=== PATIENT | male | born 1950 | race Caucasian/White ===

== ENCOUNTER → 2017-02-24 | Outpatient (CLI) | payer BC ==
--- NOTE | 2017-02-24 07:35 | US ---
EXAMINATION TYPE: US duplex aorta DATE OF EXAM: 02/24/2017 7:08 AM COMPARISON: NONE CLINICAL HISTORY: Z78.9 Other specified health status. EXAM MEASUREMENTS: Abdominal Aorta: Proximal: 1.9 Mid: 1.9 Distal: 1.4 Bifurcation: Left 0.9 Right 0.9 Some portions of aorta obscured by bowel gas, no aortic aneurysm identified. IMPRESSION: No evidence for abdominal aortic aneurysm at this time.
== END | disposition home or self-care (01) ==
LOC: RADUSWWP 06:43
PROVIDERS: ATTEND Family Medicine
DX: Z13.6 Encounter for screening for cardiovascular disorders (principal); Z78.9 Other specified health status; Z87.891 Personal history of nicotine dependence
CPT/HCPCS: 93979

== ENCOUNTER → 2018-12-07 | Outpatient (CLI) | payer BC ==
--- NOTE | 2018-12-07 11:52 | ECHOS ---
STRESS ECHOCARDIOGRAM INDICATIONS: Chest pain. MEDICATIONS: Tamsulosin, Lipitor, Flexeril, lisinopril. BASELINE HEART RATE: 64 BASELINE BLOOD PRESSURE: 102/65 MAXIMUM HEART RATE: 135 MAXIMUM BLOOD PRESSURE: 151/76 85% MPHR: 130 100% MPHR: 153 METS: 7.1 MAXIMUM STAGE REACHED: 2 TOTAL EXERCISE TIME: 5:30 CLINICAL INFORMATION: STRESS DATA: Pretesting physical examination showed a heart rate of 64, pressure 102/65 mmHg. Baseline EKG showed sinus mechanism with ST changes in the inferolateral leads. A repeat baseline EKG showed sinus mechanism. The patient exercised on the Arsen protocol for 5 minutes and 30 seconds and achieved 7.1 METS. Max heart rate was 135, which is about 88% of maximum predicted heart rate. Maximum blood pressure was 151/76 mmHg. Clinically, the patient did not have any symptoms of chest pain or chest discomfort during the testing or on recovery. The EKG showed about 1 mm horizontal and downsloping changes on recovery. ECHOCARDIOGRAM IMAGES: On echocardiogram images from parasternal long axis view, parasternal short axis view, apical 4 chamber and apical 2 chamber views were obtained as the baseline images, at the peak of the heart rate as well as on recovery. The echocardiogram images showed good augmentation in the left ventricular systolic function without any evidence of wall motion abnormalities concerning for ischemia. CONCLUSION: 1. Good exercise tolerance. 2. Mild EKG changes in response to exercise. 3. Normal echocardiographic in response to exercise without any evidence of inducible ischemia. MMODL / IJN: [id number] /
== END | disposition home or self-care (01) ==
LOC: RADNMMAIN 09:24
PROVIDERS: ATTEND Family Medicine
DX: R94.31 Abnormal electrocardiogram [ECG] [EKG] (principal); R07.89 Other chest pain
CPT/HCPCS: 93351

== ENCOUNTER 2019-02-15 08:04 | Emergency (ER) | payer BC ==
[2019-02-15 08:13] VITALS: RESP 18
--- NOTE | 2019-02-15 08:52 | CT ---
EXAMINATION TYPE: CT brain wo con DATE OF EXAM: 02/15/2019 COMPARISON: None HISTORY: Possible seizure CT DLP: 1099.[address] of the brain was performed. The ventricles, basal cisterns and sulci overlying the cerebral convexities demonstrate mild enlargem ent. There is no evidence for intracranial hemorrhage or sulcal effacement. There is decreased attenuation about the periventricular white matter and deep white matter of both c erebral hemispheres, compatible with chronic small vessel ischemia. Differential diagnosis does inclu de demyelination. No mass effects are seen.No midline shift. Osseous calvarium is intact. If symptoms persist consider MRI. IMPRESSION: 1. Age related atrophic and chronic small vessel ischemic change without acute intracranial process s een at this time.
[2019-02-15] MEDS ORDERED: SODIUM CHLORIDE 0.9% 1,000 ML IV STA (09:00)
[2019-02-15] MEDS ORDERED: ACETAMINOPHEN TAB 325 MG TAB PO STA (09:00)
[2019-02-15] MEDS ORDERED: METOCLOPRAMIDE 5 MG/ML 2 ML VIAL IVP STA (09:00)
[2019-02-15] MEDS ORDERED: diphenhydrAMINE 50 MG/ML 1 ML VIAL IVP STA (09:00)
--- NOTE | 2019-02-15 09:25 | ED ---
Headache HPI - General Chief Complaint: Headache Stated Complaint: poss seizure Time Seen by Provider: 02/15/19 08:46 Source: patient, family, RN notes reviewed Mode of arrival: ambulatory Limitations: no limitations - History of Present Illness Initial Comments: This a 68-year-old male presents emergency Department chief complaint of headache, blurred vision. Patient states that he woke up this morning states that he was looking at his clock and which she states the numbers were slightly blurry or pixels. Patient states that this lasted a few minutes and resolved. Denies any associated focal weakness, nausea, vomiting, chest pain, shortness br eath, confusion. states that he had no change in behavior. denies any slurred speech. Patient states that he has a slight headache more in the right occipital region. He is not the worse headache of his life. Patient states that this is a very mild headache did not take any Tylenol Motrin. Patient had no fevers chills no neck pain. - Related Data Home Medications Medication Instructions Recorded Confirmed Ascorbic Acid [Vitamin C] 500 mg PO DAILY 02/15/19 02/15/19 Atorvastatin [Lipitor] 20 mg PO HS 02/15/19 02/15/19 Cholecalciferol [Vitamin D3 (25 1,000 unit PO DAILY 02/15/19 02/15/19 Mcg = 1000 Iu)] Ferrous Sulfate [Feosol] 325 mg PO DAILY 02/15/19 02/15/19 Lisinopril [Prinivil] 10 mg PO HS 02/15/19 02/15/19 Primidone [Mysoline] 50 mg PO HS 02/15/19 02/15/19 Tamsulosin [Flomax] 0.4 mg PO DAILY 02/15/19 02/15/19 Terazosin [Hytrin] 2 mg PO HS 02/15/19 02/15/19 Allergies Allergy/AdvReac Type Severity Reaction Status Date / Time No Known Allergies Allergy Verified 02/15/19 09:04 Review of Systems ROS Statement: Those systems with pertinent positive or pertinent negative responses have been documented in the HPI. ROS Other: All systems not noted in ROS Statement are negative. Past Medical History Past Medical History: Hyperlipidemia, Hypertension Additional Past Medical History / Comment(s): enlarged prostate History of Any Multi-Drug Resistant Organisms: None Reported Past Surgical History: No Surgical Hx Reported Past Psychological History: No Psychological Hx Reported Smoking Status: Never smoker Past Alcohol Use History: None Reported Past Drug Use History: None Reported General Exam Limitations: no limitations General appearance: alert, in no apparent distress Head exam: Present: atraumatic, normocephalic, normal inspection Eye exam: Present: normal appearance, PERRL, EOMI. Absent: scleral icterus, conjunctival injection, periorbital swelling ENT exam: Present: normal exam, normal oropharynx, mucous membranes moist, TM's normal bilaterally Neck exam: Present: normal inspection, full ROM. Absent: tenderness, meningismus, lymphadenopathy Respiratory exam: Present: normal lung sounds bilaterally. Absent: respiratory distress, wheezes, rales, rhonchi, stridor Cardiovascular Exam: Present: regular rate, normal rhythm, normal heart sounds. Absent: systolic murmur, diastolic murmur, rubs, gallop, clicks GI/Abdominal exam: Present: soft, normal bowel sounds. Absent: distended, tenderness, guarding, rebound, rigid Extremities exam: Present: normal inspection, full ROM, normal capillary refill. Absent: tenderness, pedal edema, joint swelling, calf tenderness Neurological exam: Present: alert, oriented X3, CN II-XII intact, reflexes normal. Absent: motor sensory deficit Skin exam: Present: warm, dry, intact, normal color. Absent: rash Course Vital Signs 02/15/19 02/15/19 08:08 09:20 Temperature 97.8 F Pulse Rate 62 61 Respiratory 18 18 Rate Blood Pressure 116/69 121/81 O2 Sat by Pulse 99 98 Oximetry - Reevaluation(s) Reevaluation #1: 02/15/19 10:50 Patient reevaluated and updated on results patient is symptom-free headache is resolved. Medical Decision Making - Medical Decision Making 68-year-old male presented for headache and a few minutes blurred vision. All symptoms have resolved and he has a normal CT, CTA of the brain, normal lab work and normal EKG. Patient may have had an ocular migraine or just underlying occipital headache. We discussed possibility of TIA this is felt to be less likely. Patient will follow-up neurology he'll continue taking daily aspirin and return for any worsening or new symptoms. - Lab Data Result diagrams: 02/15/19 09:27 02/15/19 09:27 Lab Results 02/15/19 02/15/19 02/15/19 Range/Units 09:27 09:27 09:27 WBC 4.4 (3.8-10.6) k/uL RBC 4.79 (4.30-5.90) m/uL Hgb 14.0 (13.0-17.5) gm/dL Hct 42.5 (39.0-53.0) % MCV 88.7 (80.0-100.0) fL MCH 29.3 (25.0-35.0) pg MCHC 33.0 (31.0-37.0) g/dL RDW 13.8 (11.5-15.5) % Plt Count 192 (150-450) k/uL Sodium 140 (137-145) mmol/L Potassium 4.3 (3.5-5.1) mmol/L Chloride 107 (98-107) mmol/L Carbon Dioxide 28 (22-30) mmol/L Anion Gap 5 mmol/L BUN 17 (9-20) mg/dL Creatinine 0.84 (0.66-1.25) mg/dL Est GFR (CKD-EPI)AfAm >90 (>60 ml/min/1.73 sqM) Est GFR (CKD-EPI)NonAf >90 (>60 ml/min/1.73 sqM) Glucose 90 (74-99) mg/dL Calcium 9.2 (8.4-10.2) mg/dL Total Bilirubin 0.8 (0.2-1.3) mg/dL AST 34 (17-59) U/L ALT 40 (21-72) U/L Alkaline Phosphatase 63 (38-126) U/L Troponin I <0.012 (0.000-0.034) ng/mL Total Protein 6.5 (6.3-8.2) g/dL Albumin 3.9 (3.5-5.0) g/dL - EKG Data EKG Comments: EKG 0.9:12 sinus bradycardia with rate of 58 NM 164 QRS 88 QT status QTC 450/441 Disposition Clinical Impression: Headache Disposition: HOME SELF-CARE Condition: Stable Instructions (If sedation given, give patient instructions): Acute Headache (ED) Additional Instructions: Please return to the Emergency Department if symptoms worsen or any other concerns. Is patient prescribed a controlled substance at d/c from ED?: No Referrals: Chuck Encarnacion MD [Primary Care Provider] - 1-2 days Tony Davis MD [Medical Doctor] - 1-2 days Joshua House DO [STAFF PHYSICIAN] - 1-2 days Time of Disposition: 10:52
[2019-02-15 09:49] LABS: ALT 40 U/L (21-72); AST 34 U/L (17-59); Albumin 3.9 g/dL (3.5-5.0); Alkaline Phosphatase 63 U/L (38-126); Anion Gap 5 mmol/L; Blood Urea Nitrogen 17 mg/dL (9-20); Calcium 9.2 mg/dL (8.4-10.2); Carbon Dioxide 28 mmol/L (22-30); Chloride 107 mmol/L (98-107); Glucose 90 mg/dL (74-99); Potassium 4.3 mmol/L (3.5-5.1); Sodium 140 mmol/L (137-145); Total Bilirubin 0.8 mg/dL (0.2-1.3); Total Protein 6.5 g/dL (6.3-8.2)
[2019-02-15 10:08] LABS: Mean Platelet Volume 6.8; Platelet Count 192 k/uL (150-450)
[2019-02-15 10:11] LABS: HCT 42.5 % (39.0-53.0); MCH 29.3 pg (25.0-35.0); MCV 88.7 fL (80.0-100.0); RBC 4.79 m/uL (4.30-5.90); RDW 13.8 % (11.5-15.5); WBC 4.4 k/uL (3.8-10.6)
--- NOTE | 2019-02-15 10:36 | CT ---
EXAMINATION TYPE: CT angio head DATE OF EXAM: 02/15/2019 10:20 AM COMPARISON: CT brain study earlier today HISTORY: DOUGLAS, blurred vision CT DLP: 710.1 mGycm Automated exposure control for dose reduction was used. TECHNIQUE: Performed with IV Contrast, patient injected with 100 mL of Isovue 300. Aneurysm protocol with 2-D an d 3-D reconstructed images created on an independent workstation and reviewed. . FINDINGS: There is codominant vertebrobasilar system. Vertebral arteries are patent to basilar junction. There is no significant focal stenosis or aneurysmal change in the posterior circulation. There are hypopl astic bilateral posterior communicating arteries. Images of the anterior circulation show poor visualized anterior communicating artery. There is no si gnificant focal stenosis or aneurysmal change otherwise identified. There is small branching vessel f rom the anterior cerebral arteries noted causing slight beaded appearance. IMPRESSION: NO ANEURYSMAL CHANGE AT THE LEVEL OF THE [place].
[2019-02-15 11:00] LABS: Eosinophils # (M) 0.26 k/uL (0-0.7); Lymphocytes # (M) 1.28 k/uL (1.0-4.8); Monocytes # (M) 0.31 k/uL (0-1.0); Neutrophils # (M) 2.55 k/uL (1.3-7.7); Neutrophils % (M) 58 %; Nucleated Red Blood Cells 0 /100 WBC (0-0); Total Cells Counted 100
[2019-02-15 11:04] VITALS: BP 105/73; PULSE 64; TEMP 98.9
== END 2019-02-15 11:02 | disposition home or self-care (01) ==
LOC: EC 08:04
DX: R51 Headache (principal); H53.8 Other visual disturbances; E78.5 Hyperlipidemia, unspecified; N40.0 Benign prostatic hyperplasia without lower urinary tract symptoms; I10 Essential (primary) hypertension; Z79.899 Other long term (current) drug therapy
CPT/HCPCS: 36415; 93005; 80053; 84484; 85025; 70496; 70450; 99284; 96374; 96375; 96361; J1200; J2765; Q9967

== ENCOUNTER → 2019-02-20 | Outpatient (CLI) | payer BC ==
--- NOTE | 2019-02-20 14:38 | US ---
EXAMINATION TYPE: US pelvic limited DATE OF EXAM: 02/20/2019 COMPARISON: NONE CLINICAL HISTORY: 68-year-old male K40.90 Unilateral inguinal hernia, without obstruction or gangrene . TECHNIQUE: Multiple sonographic images of the right lower quadrant/region on the safe side of patien t's pain/palpable finding FINDINGS: No right inguinal or otherwise other right lower quadrant abdominal wall hernia is identified with Va lsalva maneuvers. Targeted scanning to the patient's palpable site shows a prominent high right inguinal lymph node is noted measuring 2.6 x 2.0 x 0.9 cm. Just adjacent to this region, the rectus femoris origin is identified and there is bony irregularity and some fragmentation here but the originating tendon fibers appear to be largely intact. IMPRESSION: 1. No right inguinal hernia identified. 2. Targeted scanning to the patient's palpable site shows a prominent 2.0 cm short axis lymph node, p robably reactive/post inflammatory. Initially followed clinically. If any enlargement is noted, the a cuca can be imaged. 3. Just adjacent, there is some bony irregularity and hypoechogenicity at the rectus femoris origin s uggesting tendinosis and prior partial tears. The majority of the tendon remains intact.
== END | disposition home or self-care (01) ==
LOC: RADUSWWP 12:41
PROVIDERS: ATTEND Family Medicine
DX: K40.90 Unilateral inguinal hernia, without obstruction or gangrene, not specified as recurrent (principal)
CPT/HCPCS: 76857

== ENCOUNTER → 2019-05-14 | Outpatient (CLI) | payer BC ==
--- NOTE | 2019-05-14 14:56 | US ---
EXAMINATION TYPE: US pelvic limited DATE OF EXAM: 05/14/2019 COMPARISON: 02/20/2019 CLINICAL HISTORY: R59.1 Reactive lymphadenopathy. Lymphadenopathy. TECHNIQUE: Transabdominal (TA) targeted pelvic ultrasound. FINDINGS: Postvoid volume of the urinary bladder is abnormal measured at 92.40 ml. The prostate gland also appears diffusely heterogenous and enlarged measuring 6 cm in transverse dimension impressing u jeanne the posterior inferior urinary bladder. Bilateral jets seen. In the right lower quadrant peristalsing bowel, presumably cecum is seen. No tom nopathy is identified. IMPRESSION: The previously seen adenopathy is not identified on the submitted images. Incidental note is made of abnormal post void residual and enlarged heterogenous prostate gland.
== END | disposition home or self-care (01) ==
LOC: RADUSWWP 13:07
PROVIDERS: ATTEND Family Medicine
DX: N40.0 Benign prostatic hyperplasia without lower urinary tract symptoms (principal)
CPT/HCPCS: 76857

== ENCOUNTER → 2019-06-26 | Outpatient (CLI) | payer BC ==
--- NOTE | 2019-06-26 08:33 | US ---
EXAMINATION TYPE: US prostate transrectal DATE OF EXAM: 06/26/2019 COMPARISON: NONE CLINICAL HISTORY: N13.8 Obstructive and Reflux Uropathy. This examination was performed using the transrectal probe. EXAM MEASUREMENTS: Gland Size: 5.2 x 3.3 x 5.1cm Volume: 44.9 Predicted PSA: 5.4 Actual PSA (if available):0.7 (done April 2018) Prostate gland is heterogenous with central zone calcifications. No focal suspicious masses seen on u ltrasound. IMPRESSION: Heterogenous and enlarged prostate gland. No identifiable suspicious nodule. Predicted PSA = volume x 0.12 ng/ml Calculated Volume = 0.5236 x L x W x H
== END | disposition home or self-care (01) ==
LOC: RADUSWWP 06:51
PROVIDERS: ATTEND Family Medicine
DX: N40.0 Benign prostatic hyperplasia without lower urinary tract symptoms (principal); N13.8 Other obstructive and reflux uropathy
CPT/HCPCS: 76872

== ENCOUNTER → 2021-01-19 | Outpatient (CLI) | payer BC ==
--- NOTE | 2021-01-20 03:52 | MR ---
EXAMINATION TYPE: MR brain wo con DATE OF EXAM: 01/19/2021 COMPARISON: 7:30 HISTORY: Memory loss. Multiplanar multiecho imaging of the brain was performed with no contrast. There is some cerebral cortical atrophy. There is no mass effect nor midline shift. There is no sign of intracranial hemorrhage. Brainstem is intact. Corpus callosum is intact. Sella turcica appears nor mal. Diffusion images show no evidence of an acute infarct. There is some mucosal thickening in the m axillary sinuses. There is slight increased signal in the white matter of the right occipital lobe on the T2 and FLAIR images. There is 4 mm focus of increased signal in the white matter right insula of the temporal lobe which is a change compared to old exam. There is no evidence of orbital mass. IMPRESSION: There is some cerebral atrophy. No evidence of cortical infarct. White matter signal changes in the r ight occipital lobe and in the insula right temporal lobe are increased compared to old exam.
== END | disposition home or self-care (01) ==
LOC: RADMRIMAIN 15:35
PROVIDERS: ATTEND Psychiatry & Neurology Neurology
DX: R90.82 White matter disease, unspecified (principal); G31.9 Degenerative disease of nervous system, unspecified
CPT/HCPCS: 70551

== ENCOUNTER → 2021-02-18 | Outpatient (CLI) | payer BC ==
--- NOTE | 2021-02-18 12:44 | ECHOF ---
Referral Reason:G45.9 Transient cerebral ishemic attack MEASUREMENTS -------- HEIGHT: 185.4 cm WEIGHT: 90.7 kg BP: 139/73 RVIDd: 3.5 cm (< 3.3) IVSd: 1.2 cm (0.6 - 1.1) LVIDd: 4.4 cm (3.9 - 5.3) LVPWd: 1.3 cm (0.6 - 1.1) IVSs: 1.7 cm LVIDs: 3.1 cm LVPWs: 1.8 cm LA Diam: 3.8 cm (2.7 - 3.8) LAESV Index (A-L): 24.46 ml/m Ao Diam: 3.4 cm (2.0 - 3.7) AV Cusp: 2.2 cm (1.5 - 2.6) MV EXCURSION: 19.436 mm (> 18.000) MV EF SLOPE: 96 mm/s (70 - 150) EPSS: 0.4 cm MV E Khang: 0.57 m/s MV DecT: 254 ms MV A Khang: 0.59 m/s MV E/A Ratio: 0.96 FINDINGS -------- Sinus rhythm. This was a technically good study. The left ventricular size is normal. There is mild concentric left ventricular hypertrophy. Overa ll left ventricular systolic function is normal with, an EF between 55 - 60 %. The right ventricle is mildly enlarged. Normal LA size by volume 22+/-6 ml/m2. The right atrium is normal in size. Interatrial and interventricular septum intact. The aortic valve is trileaflet, and appears structurally normal. No aortic stenosis or regurgitation. There is trace to mild mitral regurgitation. Trace tricuspid regurgitation present. Unable to estimate RVSP due to inadequate TR jet spectral do ppler profile. The pulmonic valve was not well visualized. The aortic root size is normal. IVC Not well visulized. There is no pericardial effusion. CONCLUSIONS -------- 1. The left ventricular size is normal. 2. There is mild concentric left ventricular hypertrophy. 3. Overall left ventricular systolic function is normal with, an EF between 55 - 60 %. 4. The right ventricle is mildly enlarged. 5. Normal LA size by volume 22+/-6 ml/m2. 6. The aortic valve is trileaflet, and appears structurally normal. No aortic stenosis or regurgitati on. 7. There is trace to mild mitral regurgitation. 8. Trace tricuspid regurgitation present. 9. There is no pericardial effusion. CLASSIFIER: Alicia Carrillo RDCS
== END | disposition home or self-care (01) ==
LOC: RADECHMAIN 11:50
PROVIDERS: ATTEND Family Medicine
DX: I08.1 Rheumatic disorders of both mitral and tricuspid valves (principal)
CPT/HCPCS: 93306

== ENCOUNTER → 2021-02-25 | Outpatient (CLI) | payer BC ==
--- NOTE | 2021-02-25 12:40 | US ---
EXAMINATION TYPE: US carotid duplex BILAT DATE OF EXAM: 02/25/2021 COMPARISON: CTang head neck CLINICAL HISTORY: G45.9 Transient cerebral ischemic. Symptoms 5 years ago. EXAM MEASUREMENTS: RIGHT: Peak Systolic Velocity (PSV) cm/sec ----- Right CCA: 82.9 ----- Right ICA: 80.3 ----- Right ECA: 121.3 mid ICA/CCA ratio: 1.0 RIGHT: End Diastole cm/sec ----- Right CCA: 19.7 ----- Right ICA: 15.9 ----- Right ECA: 18.9 LEFT: Peak Systolic Velocity (PSV) cm/sec ----- Left CCA: 70.0 ----- Left ICA: 109.6 ----- Left ECA: 87.6 ICA/CCA ratio: 1.6 LEFT: End Diastole cm/sec ----- Left CCA: 18.3 ----- Left ICA: 11.1 ----- Left ECA: 12.4 VERTEBRALS (direction of flow): Right Vertebral: Antegrade Left Vertebral: Antegrade Rhythm: Normal Mild to moderate intimal wall changes are noted at bilateral carotid bifurcation, but PSV is wnl bila terally. IMPRESSION: No evidence for hemodynamically significant stenosis. Criteria for Assigning % of Stenosis / Diameter reduction (Estimation based on the indirect measurements of the internal carotid artery velocities (ICA PSV). 1. Normal (no stenosis)=ICA PSV < 125 cm/s: ratio < 2.0: ICA EDV<40 cm/s. 2. Less than 50% stenosis=ICA PSV < 125 cm/s: ratio < 2.0: ICA EDV<40 cm/s. 3. 50 to 69% stenosis=ICA PSV of 125 to 230 cm/s: ration 2.0 ? 4.0: ICA EDV 40-100 cm/s. 4. Greater than 70% stenosis to near occlusion= ICA PSV > 230 cm/s: ratio > 4.0: ICA EDV > 100 cm/s. 5. Near occlusion= ICA PSV velocities may be low or undetectable: variable ratio and ICA EDV. 6. Total occlusion=unable to detect flow.
== END | disposition home or self-care (01) ==
LOC: RADUSWWP 10:46
PROVIDERS: ATTEND Family Medicine
DX: G45.9 Transient cerebral ischemic attack, unspecified (principal)
CPT/HCPCS: 93880

== ENCOUNTER → 2021-08-09 | Outpatient (CLI) | payer BC | END | disposition home or self-care (01) | LOC: LABWHC1 10:36 | PROVIDERS: ATTEND Psychiatry & Neurology Neurology | DX: R41.3 Other amnesia (principal) | CPT/HCPCS: 36415; 82607; 84443 ==

== ENCOUNTER → 2022-05-06 | Outpatient (CLI) | payer BC ==
[2022-05-06 14:51] LABS: Basophils % (A) 1 %; Eosinophils # (A) 0.4 k/uL (0-0.7); Eosinophils % (A) 7 %; HCT 43.9 % (39.0-53.0); HGB 14.1 gm/dL (13.0-17.5); Lymphocytes # (A) 1.4 k/uL (1.0-4.8); Lymphocytes % (A) 26 %; MCH 30.3 pg (25.0-35.0); MCHC 32.1 g/dL (31.0-37.0); MCV 94.5 fL (80.0-100.0); Mean Platelet Volume 7.1; Monocytes # (A) 0.3 k/uL (0-1.0); Monocytes % (A) 6 %; Neutrophils # (A) 3.2 k/uL (1.3-7.7); Neutrophils % (A) 59 %; Platelet Count 180 k/uL (150-450); RBC 4.65 m/uL (4.30-5.90); RDW 13.2 % (11.5-15.5); WBC 5.4 k/uL (3.8-10.6)
[2022-05-06 15:00] LABS: ALT 28 U/L (4-49); AST 35 U/L (17-59); African American GFR (CKD) >90 (>60 ml/min/1.73 sqM); Albumin 3.8 g/dL (3.5-5.0); Albumin/Globulin Ratio 1.5; Alkaline Phosphatase 92 U/L (38-126); Anion Gap 4 mmol/L; Blood Urea Nitrogen 17 mg/dL (9-20); Calcium 8.9 mg/dL (8.4-10.2); Carbon Dioxide 33 mmol/L (22-30); Chloride 103 mmol/L (98-107); Globulin 2.5 g/dL; Glucose 83 mg/dL (74-99); Non-African American GFR(CKD) 80 (>60 ml/min/1.73 sqM); Potassium 4.2 mmol/L (3.5-5.1); Sodium 140 mmol/L (137-145); Total Bilirubin 0.3 mg/dL (0.2-1.3); Total Protein 6.3 g/dL (6.3-8.2)
[2022-05-06 15:12] LABS: Creatine Kinase MB 2.3 ng/mL (0.0-2.4); Troponin I <0.012 ng/mL (0.000-0.034)
[2022-05-06 15:16] LABS: T4, Free (Free Thyroxine) 0.78 ng/dL (0.78-2.19)
== END | disposition home or self-care (01) ==
LOC: LABWHC1 14:20
PROVIDERS: ATTEND Nurse Practitioner Adult Health
DX: E78.5 Hyperlipidemia, unspecified (principal); R07.9 Chest pain, unspecified; R25.1 Tremor, unspecified
CPT/HCPCS: 36415; 80053; 82553; 83036; 84439; 84443; 84484; 85025

== ENCOUNTER → 2022-07-11 | Outpatient (CLI) | payer BC ==
[~2022-07-11] MED LIST: BEBTELOVIMAB (EUA) 175 MG/2 ML VIAL IV NR; SODIUM CHLORIDE 0.9% 500 ML 500 ML in EMPTY BAG 1 BAG IV PRN
[2022-07-11 13:06] VITALS: TEMP 97.3
[2022-07-11 13:43] VITALS: BP 118/81; PULSE 69; RESP 16
== END ==
LOC: PROCWHC3 12:34
PROVIDERS: ATTEND Physician Assistant
DX: U07.1 COVID-19 (principal)
CPT/HCPCS: Q0222; M0222

== ENCOUNTER → 2023-03-10 | Outpatient (CLI) | payer BC ==
--- NOTE | 2023-03-11 16:45 | CA ---
Transthoracic Echo Report Name: Barrett Valero Age: 72 Gender: M : 1950 Exam Date: 03/10/2023 14:37 Exam Location: [facility] Ht (in): 74 Wt (lb): 187 Ordering Physician: Benson Berrios MD Attending/Referring Phys: Geovanna Wilson PAC Cloth Shrinker Sunshine Rosado RDCS Procedure CPT: Indications: R06.01 Cardiac Hx: Technical Quality: Fair Contrast 1: Total Dose (mL): Contrast 2: Total Dose (mL): MEASUREMENTS (Male / Female) Normal Values 2D ECHO LV Diastolic Diameter PLAX 3.2 cm 4.2 - 5.9 / 3.9 - 5.3 cm LV Systolic Diameter PLAX 2.4 cm IVS Diastolic Thickness 0.9 cm 0.6 - 1.0 / 0.6 - 0.9 cm LVPW Diastolic Thickness 1.1 cm 0.6 - 1.0 / 0.6 - 0.9 cm LV Relative Wall Thickness 0.6 RV Internal Dim ED PLAX 3.6 cm LA Volume 51.6 cm??? 18 - 58 / 22 - 52 cm??? M-MODE Aortic Root Diameter MM 3.4 cm LA Systolic Diameter MM 4.8 cm LA Ao Ratio MM 1.4 DOPPLER AV Peak Velocity 118.0 cm/s AV Peak Gradient 5.6 mmHg AV Mean Velocity 87.0 cm/s AV Mean Gradient 3.2 mmHg AV Velocity Time Integral 22.5 cm LVOT Peak Velocity 84.3 cm/s LVOT Peak Gradient 2.8 mmHg LVOT Velocity Time Integral 14.2 cm Mitral E Point Velocity 51.3 cm/s Mitral A Point Velocity 68.0 cm/s Mitral E to A Ratio 0.8 MV Deceleration Time 157.2 ms MV E' Velocity 7.0 cm/s Mitral E to MV E' Ratio 7.3 TR Peak Velocity 272.5 cm/s TR Peak Gradient 29.7 mmHg Right Ventricular Systolic Press 39.7 mmHg FINDINGS Left Ventricle Normal Left ventricular size, wall thickness, systolic function with no obvious regional wall motion abnormalities. Normal Left ventricular diastolic filling pattern. Left ventricular ejection fraction is estimated at 55-60 %. Right Ventricle Normal right ventricular size and function. Mild pulmonary hypertension. Right Atrium Normal right atrial size. Left Atrium Normal left atrial size. Mitral Valve Structurally normal mitral valve. Mild mitral regurgitation. Aortic Valve Trileaflet aortic valve. No aortic valve stenosis or regurgitation. Tricuspid Valve Structurally normal tricuspid valve. Mild tricuspid regurgitation. Pulmonic Valve Structurally normal pulmonic valve. Trace pulmonic regurgitation. Pericardium No pericardial effusion. Aorta Normal size aortic root and proximal ascending aorta. CONCLUSIONS Normal LV systolic function Previewed by: Dr. Charles Huynh MD (Electronically Signed) Final Date: 11 Mar 2023 16:44
== END | disposition home or self-care (01) ==
LOC: RADECHMAIN 14:16
PROVIDERS: ATTEND Family Medicine
DX: R06.01 Orthopnea (principal)
CPT/HCPCS: 93306

== ENCOUNTER 2023-03-18 19:33 | Emergency (ER) | payer BC, MEDICARE ==
[2023-03-18 19:40] VITALS: RESP 16; TEMP 98.1
--- NOTE | 2023-03-18 20:02 | ED ---
General Adult HPI - General Chief complaint: Abdominal Pain Stated complaint: abd pain, not eatting Time Seen by Provider: 03/18/23 20:01 Source: patient, family Mode of arrival: ambulatory Limitations: no limitations - History of Present Illness Initial comments: Patient presents to the ED with his for evaluation. reports that the patient has not been eating very much for the past couple of months due to having abdominal pain. Patient points to his left upper quadrant abdomen/epigastrium when asked where he has been having pain. Patient reports that his pain is currently 6/10 in severity. Patient states that his pain is worse with oral intake. Patient admits to feeling generally weak as well. Patient denies trauma or injury, fever or chills, headache, focal neuro deficit, chest pain or pressure, dyspnea, cough or cold symptoms, dizziness, back/flank pain, nausea/vomiting/diarrhea, constipation, bloody or melanotic stool, dysu aleks/hematuria/urinary frequency/urinary symptoms, or any other symptoms or complaints. - Related Data Home Medications Medication Instructions Recorded Confirmed Ascorbic Acid [Vitamin C] 500 mg PO DAILY 02/15/19 02/15/19 Atorvastatin [Lipitor] 20 mg PO HS 02/15/19 02/15/19 Cholecalciferol [Vitamin D3 (25 1,000 unit PO DAILY 02/15/19 02/15/19 Mcg = 1000 Iu)] Ferrous Sulfate [Feosol] 325 mg PO DAILY 02/15/19 02/15/19 Primidone [Mysoline] 50 mg PO HS 02/15/19 02/15/19 Tamsulosin [Flomax] 0.4 mg PO DAILY 02/15/19 02/15/19 Terazosin [Hytrin] 2 mg PO HS 02/15/19 02/15/19 lisinopriL [Prinivil] 10 mg PO HS 02/15/19 02/15/19 Allergies Allergy/AdvReac Type Severity Reaction Status Date / Time No Known Allergies Allergy Verified 03/18/23 19:37 Review of Systems ROS Statement: Those systems with pertinent positive or pertinent negative responses have been documented in the HPI. ROS Other: All systems not noted in ROS Statement are negative. Past Medical History Past Medical History: Hyperlipidemia, Hypertension, Prostate Disorder Additional Past Medical History / Comment(s): enlarged prostate History of Any Multi-Drug Resistant Organisms: None Reported Past Surgical History: Hernia Repair Past Psychological History: No Psychological Hx Reported Smoking Status: Never smoker Past Alcohol Use History: None Reported Past Drug Use History: None Reported General Exam Limitations: no limitations General appearance: alert, in no apparent distress Head exam: Present: normocephalic ENT exam: Present: mucous membranes moist Neck exam: Present: other (Trachea is in midline) Respiratory exam: Present: normal lung sounds bilaterally. Absent: respiratory distress, wheezes, rales, rhonchi, stridor Cardiovascular Exam: Present: regular rate, normal rhythm, normal heart sounds, other (Normal radial pulses bilaterally) GI/Abdominal exam: Present: soft, distended, normal bowel sounds, other (Mild generalized abdominal tenderness). Absent: guarding, rebound Extremities exam: Present: pedal edema. Absent: tenderness, calf tenderness Back exam: Absent: CVA tenderness (R), CVA tenderness (L) Neurological exam: Present: alert, oriented X3 Skin exam: Present: warm, dry, intact, normal color Course Vital Signs 03/18/23 03/18/23 19:37 22:07 Temperature 98.1 F Pulse Rate 75 64 Respiratory 16 16 Rate Blood Pressure 116/81 120/86 O2 Sat by Pulse 97 96 Oximetry - Reevaluation(s) Reevaluation #1: 03/18/23 22:19 Patient reports improvement in his pain with the IV Dilaudid that he was given in the ED, and he denies development of any new symptoms while in the ED. Patient's abdomen remains soft and without any surgical signs on exam. Patient remains alert and breathing comfortably with a normal room air oxygen saturation. Patient and are aware of the patient's test results, and they both feel comfortable with the patient being discharged home at this time. They were counseled about abdominal pain, ascites, pleural effusions, hypokalemia and cirrhosis. They were clearly explained return and follow-up instructions. Patient was instructed to follow up closely with his primary care provider, as well as GI ( states that the patient has an appointment scheduled to see Dr. Hurt in 2 weeks). EKG Findings - EKG Comments: EKG Findings:: ED physician interpretation (interpreted by me): Normal sinus rhythm, ventricular rate of 74 bpm, normal [place] and QRS intervals, normal QT interval, rightward axis, inferolateral T-wave inversions, no ST elevation Medical Decision Making - Medical Decision Making Was pt. sent in by a medical professional or institution (GABBY Jon, [employer] INSPECTOR, urgent care, hospital, or half-way...) When possible be specific @ -No Did you speak to anyone other than the patient for history (EMS, parent, family, police, friend...)? What history was obtained from this source @ -History was also obtained from the patient's . Did you review nursing and triage notes (agree or disagree)? Why? @ -I reviewed and agree with nursing and triage notes Were old charts reviewed (outside hosp., previous admission, EMS record, old EKG, old radiological studies, urgent care reports/EKG's, half-way records)? Report findings @ -No old charts were reviewed Differential Diagnosis (chest pain, altered mental status, abdominal pain women, abdominal pain men, vaginal bleeding, weakness, fever, dyspnea, syncope, headache, dizziness, GI bleed, back pain, seizure, CVA, palpatations, mental health, musculoskeletal)? @ -Differential Abdominal Pain Men: Appendicitis, cholecystitis, diverticulosis, diverticulitis, ischemic bowel, pancreatitis, hepatitis, gastroenteritis, AAA, incarcerated hernia, bowel obstruction, constipation, inflammatory bowel, peptic ulcer disease, perforated viscus ACS/GA, this is not meant to be an all-inclusive list EKG interpreted by me (3pts min.). @ -As above X-rays interpreted by me (1pt min.). @ -Chest x-ray was reviewed myself and shows no acute cardiopulmonary disease. I agree with the radiologist's interpretation as above. CT interpreted by me (1pt min.). @ -CT abdomen/pelvis was reviewed myself and shows ascites. I agree with the radiologist's interpretation as above. U/S interpreted by me (1pt. min.). @ -None done What testing was considered but not performed or refused? (CT, X-rays, U/S, labs)? Why? @ -None What meds were considered but not given or refused? Why? @ -None Did you discuss the management of the patient with other professionals (professionals i.e. GABBY Jon, [employer] INSPECTOR, lab, RT, psych nurse, older adult social work specialist, sandwich board carrier, teacher, bank secrecy act officer, caseworker intake)? Give summary @ -No Was smoking cessation discussed for >3mins.? @ -No Was critical care preformed (if so, how long)? @ -No Were there social determinants of health that impacted care today? How? (Homelessness, low income, unemployed, alcoholism, drug addiction, transportation, low edu. Level, literacy, decrease access to med. care, custodial, rehab)? @ -No Was there de-escalation of care discussed even if they declined (Discuss DNR or withdrawal of care, Hospice)? DNR status @ -No What co-morbidities impacted this encounter? (DM, HTN, Smoking, COPD, CAD, Cancer, CVA, ARF, Chemo, Hep., AIDS, mental health diagnosis, sleep apnea, morbid obesity)? @ -None Was patient admitted / discharged? Hospital course, mention meds given and route, prescriptions, significant lab abnormalities, going to OR and other pertinent info. @ -Patient has a soft/nonsurgical abdominal exam. Patient is afebrile and without leukocytosis. Patient's imaging findings are consistent with third- spacing, which I suspect is likely from cirrhosis. Patient's BNP and troponin are within normal limits. The underlying etiology of these findings is uncertain at this time. Patient is noted to have mild hypokalemia, and his potassium was repleted with oral potassium in the ED. I do not suspect an emergent medical or surgical condition at this time. Will discharge patient home at this time. Patient and were instructed to have the patient follow up closely with his primary care provider, as well as GI ( states that the patient has an appointment scheduled to see Dr. Hurt in 2 weeks). Patient and feel comfortable with this plan. Undiagnosed new problem with uncertain prognosis? @ -No Drug Therapy requiring intensive monitoring for toxicity (Heparin, Nitro, Insulin, Cardizem)? @ -No Were any procedures done? @ -No Diagnosis/symptom? @ -Abdominal pain Acute, or Chronic, or Acute on Chronic? @ -Chronic Uncomplicated (without systemic symptoms) or Complicated (systemic symptoms)? @ -default Side effects of treatment? @ -No Exacerbation, Progression, or Severe Exacerbation? @ -No Poses a threat to life or bodily function? How? (Chest pain, USA, GA, pneumonia, PE, COPD, DKA, ARF, appy, cholecystitis, CVA, Diverticulitis, Homicidal, Suicidal, threat to staff... and all critical care pts) @ -No Diagnosis/symptom? @ -Ascites Acute, or Chronic, or Acute on Chronic? @ -default Uncomplicated (without systemic symptoms) or Complicated (systemic symptoms)? @ -default Side effects of treatment? @ -none Exacerbation, Progression, or Severe Exacerbation] @ -no Poses a threat to life or bodily function? @ -no Diagnosis/symptom? @ -Pleural effusions Acute, or Chronic, or Acute on Chronic? @ -default Uncomplicated (without systemic symptoms) or Complicated (systemic symptoms)? @ -default Side effects of treatment? @ -none Exacerbation, Progression, or Severe Exacerbation] @ -no Poses a threat to life or bodily function? @ -no Diagnosis/symptom? @ -Mild hypokalemia Acute, or Chronic, or Acute on Chronic? @ -default Uncomplicated (without systemic symptoms) or Complicated (systemic symptoms)? @ -default Side effects of treatment? @ -none Exacerbation, Progression, or Severe Exacerbation] @ -no Poses a threat to life or bodily function? @ -no - Lab Data Result diagrams: 03/18/23 20:35 03/18/23 20:35 Lab Results 03/18/23 03/18/23 03/18/23 Range/Units 20:35 20:35 20:35 WBC 7.2 (3.8-10.6) k/uL RBC 4.47 (4.30-5.90) m/uL Hgb 13.7 (13.0-17.5) gm/dL Hct 40.7 (39.0-53.0) % MCV 91.0 (80.0-100.0) fL MCH 30.6 (25.0-35.0) pg MCHC 33.6 (31.0-37.0) g/dL RDW 13.2 (11.5-15.5) % Plt Count 215 (150-450) k/uL MPV 7.2 Neutrophils % 74 % Lymphocytes % 13 % Monocytes % 8 % Eosinophils % 3 % Basophils % 1 % Neutrophils # 5.3 (1.3-7.7) k/uL Lymphocytes # 0.9 L (1.0-4.8) k/uL Monocytes # 0.6 (0-1.0) k/uL Eosinophils # 0.3 (0-0.7) k/uL Basophils # 0.0 (0-0.2) k/uL PT 11.1 (9.0-12.0) sec INR 1.1 (<1.2) APTT 24.3 (22.0-30.0) sec Sodium 135 L (137-145) mmol/L Potassium 3.2 L (3.5-5.1) mmol/L Chloride 95 L (98-107) mmol/L Carbon Dioxide 36 H (22-30) mmol/L Anion Gap 4 mmol/L BUN 24 H (9-20) mg/dL Creatinine 1.03 (0.66-1.25) mg/dL Est GFR (CKD-EPI)AfAm 84 (>60 ml/min/1.73 sqM) Est GFR (CKD-EPI)NonAf 73 (>60 ml/min/1.73 sqM) Glucose 122 H (74-99) mg/dL Plasma Lactic Acid Boy (0.7-2.0) mmol/L Calcium 8.1 L (8.4-10.2) mg/dL Magnesium 2.3 (1.6-2.3) mg/dL Total Bilirubin 0.4 (0.2-1.3) mg/dL AST 32 (17-59) U/L ALT 19 (4-49) U/L Alkaline Phosphatase 83 (38-126) U/L Troponin I (0.000-0.034) ng/mL NT-Pro-B Natriuret Pep pg/mL Total Protein 5.3 L (6.3-8.2) g/dL Albumin 2.8 L (3.5-5.0) g/dL Amylase 41 (30-110) U/L Lipase 116 (23-300) U/L 03/18/23 03/18/23 03/18/23 Range/Units 20:35 20:35 20:35 WBC (3.8-10.6) k/uL RBC (4.30-5.90) m/uL Hgb (13.0-17.5) gm/dL Hct (39.0-53.0) % MCV (80.0-100.0) fL MCH (25.0-35.0) pg MCHC (31.0-37.0) g/dL RDW (11.5-15.5) % Plt Count (150-450) k/uL MPV Neutrophils % % Lymphocytes % % Monocytes % % Eosinophils % % Basophils % % Neutrophils # (1.3-7.7) k/uL Lymphocytes # (1.0-4.8) k/uL Monocytes # (0-1.0) k/uL Eosinophils # (0-0.7) k/uL Basophils # (0-0.2) k/uL PT (9.0-12.0) sec INR (<1.2) APTT (22.0-30.0) sec Sodium (137-145) mmol/L Potassium (3.5-5.1) mmol/L Chloride (98-107) mmol/L Carbon Dioxide (22-30) mmol/L Anion Gap mmol/L BUN (9-20) mg/dL Creatinine (0.66-1.25) mg/dL Est GFR (CKD-EPI)AfAm (>60 ml/min/1.73 sqM) Est GFR (CKD-EPI)NonAf (>60 ml/min/1.73 sqM) Glucose (74-99) mg/dL Plasma Lactic Acid Boy 1.4 (0.7-2.0) mmol/L Calcium (8.4-10.2) mg/dL Magnesium (1.6-2.3) mg/dL Total Bilirubin (0.2-1.3) mg/dL AST (17-59) U/L ALT (4-49) U/L Alkaline Phosphatase (38-126) U/L Troponin I <0.012 (0.000-0.034) ng/mL NT-Pro-B Natriuret Pep 222 pg/mL Total Protein (6.3-8.2) g/dL Albumin (3.5-5.0) g/dL Amylase (30-110) U/L Lipase (23-300) U/L - Radiology Data Chest x-ray: No acute cardiopulmonary disease/process. CT abdomen/pelvis with IV contrast: 1. Large volume ascites with distended abdomen. Correlate for cirrhosis. 2. Bilateral pleural effusions with cardiomegaly and third spacing of fluid correlate for congestive heart failure. 3. Moderate hiatal hernia. 4. Findings of circumferential wall thickening of the colon consistent with hepatic colopathy. 5. Colonic diverticulosis Disposition Clinical Impression: Abdominal pain, Hypokalemia, Ascites, Pleural effusion Disposition: HOME SELF-CARE Condition: Stable Instructions (If sedation given, give patient instructions): Abdominal Pain (ED), Cirrhosis (ED), Ascites (ED), Pleural Effusion (DC), Hypokalemia (ED) Additional Instructions: Return to the ER immediately should you develop new or worsening pain, shortness of breath, a fever, vomiting, feeling dizzy or faint, or new or worsening symptoms. Follow up closely with your primary care provider, as well as Dr. Hurt (GI). Is patient prescribed a controlled substance at d/c from ED?: No Referrals: Chuck Encarnacion MD [Primary Care Provider] - 1-2 days Betty Hurt MD [STAFF PHYSICIAN] - 1-2 days Time of Disposition: 22:36
[2023-03-18] MEDS ORDERED: HYDROmorphone 0.5 MG/0.5 ML SYRINGE IVP STA (20:23)
[2023-03-18 20:50] LABS: Basophils % (A) 1 %; Eosinophils # (A) 0.3 k/uL (0-0.7); Eosinophils % (A) 3 %; HCT 40.7 % (39.0-53.0); HGB 13.7 gm/dL (13.0-17.5); Lymphocytes # (A) 0.9 k/uL (1.0-4.8); Lymphocytes % (A) 13 %; MCH 30.6 pg (25.0-35.0); MCHC 33.6 g/dL (31.0-37.0); Mean Platelet Volume 7.2; Monocytes # (A) 0.6 k/uL (0-1.0); Monocytes % (A) 8 %; Neutrophils # (A) 5.3 k/uL (1.3-7.7); Neutrophils % (A) 74 %; Platelet Count 215 k/uL (150-450); RBC 4.47 m/uL (4.30-5.90); RDW 13.2 % (11.5-15.5); WBC 7.2 k/uL (3.8-10.6)
[2023-03-18 21:03] LABS: Albumin 2.8 g/dL (3.5-5.0); Calcium 8.1 mg/dL (8.4-10.2); Magnesium 2.3 mg/dL (1.6-2.3); Potassium 3.2 mmol/L (3.5-5.1); Total Bilirubin 0.4 mg/dL (0.2-1.3); Total Protein 5.3 g/dL (6.3-8.2)
[2023-03-18 21:10] LABS: INR 1.1 (<1.2); Partial Thromboplastin Time 24.3 sec (22.0-30.0); Prothrombin Time 11.1 sec (9.0-12.0)
--- NOTE | 2023-03-18 21:10 | XR ---
EXAMINATION TYPE: XR chest 1V portable DATE OF EXAM: 03/18/2023 9:01 PM COMPARISON: None TECHNIQUE: XR chest 1V portable Frontal view of the chest. CLINICAL INDICATION:Male, 72 years old with history of abdominal pain; FINDINGS: Lungs/Pleura: There is no evidence of pleural effusion, focal consolidation, or pneumothorax. Pulmonary vascularity: Unremarkable. Heart/mediastinum: Cardiomediastinal silhouette is unremarkable. Musculoskeletal: No acute osseous pathology. IMPRESSION: No acute cardiopulmonary disease/process.
[2023-03-18] MEDS ORDERED: POTASSIUM CHLORIDE ER 20 MEQ TAB.ER PO STA (21:49)
--- NOTE | 2023-03-18 22:02 | CT ---
EXAMINATION TYPE: CT abdomen pelvis w con CT DLP: 1092.4 mGycm, Automated exposure control for dose reduction was used. DATE OF EXAM: 03/18/2023 9:51 PM COMPARISON: None CLINICAL INDICATION:Male, 72 years old with history of abdominal pain; Abdominal pain TECHNIQUE: Axial CT of the abdomen and pelvis. Sagittal and coronal reformats were created on a [employer] workstation. Contrast used:100 mL of Isovue 300 with IV Contrast, Oral contrast used: without Oral Contrast FINDINGS: LOWER CHEST: Trace bilateral pleural effusions the heart is mildly enlarged for size. ABDOMEN LIVER: May have a mild nodular contour. Evaluation limited. GALLBLADDER AND BILE DUCTS: Unremarkable. PANCREAS: Unremarkable. SPLEEN: Unremarkable. ADRENAL GLANDS: Unremarkable. KIDNEYS AND URETERS: No evidence of hydronephrosis or renal calculus. The ureters are unremarkable. PELVIS BLADDER: Unremarkable REPRODUCTIVE: Bilateral hydroceles. ABDOMEN & PELVIS STOMACH AND BOWEL: Moderate hiatal hernia is present. No evidence of bowel obstruction. Findings of c ircumferential wall thickening of the colon consistent with hepatic colopathy. Scattered colonic dive rticula are present. PERITONEUM/RETROPERITONEUM: No evidence of pneumoperitoneum. Large volume of ascites. VASCULATURE: No evidence of aortic aneurysm. MUSCULOSKELETAL: No acute osseous abnormalities LYMPH NODES: No gross evidence for lymphadenopathy. SOFT TISSUE/ABDOMINAL WALL: Anasarca of the soft tissues. IMPRESSION: 1. Large volume ascites with distended abdomen. Correlate for cirrhosis. 2. Bilateral pleural effusions with cardiomegaly and third spacing of fluid correlate for congestive heart failure. 3. Moderate hiatal hernia. 4. Findings of circumferential wall thickening of the colon consistent with hepatic colopathy. 5. Colonic diverticulosis.
[2023-03-18 22:08] VITALS: BP 120/86; PULSE 64
== END 2023-03-18 22:59 | disposition home or self-care (01) ==
LOC: EC 19:33
DX: R10.84 Generalized abdominal pain (principal); E87.6 Hypokalemia; R18.8 Other ascites; J90 Pleural effusion, not elsewhere classified; E78.5 Hyperlipidemia, unspecified; I10 Essential (primary) hypertension; Z79.899 Other long term (current) drug therapy
CPT/HCPCS: 36415; 93005; 83880; 80053; 82150; 83605; 83690; 83735; 84484; 85025; 85610; 85730; 71045; 74177; 99285; 96374; J1170; Q9967

== ENCOUNTER → 2023-03-28 | Outpatient (CLI) | payer BC, MEDICARE ==
[2023-03-28 15:34] LABS: Protein, Total 5.9 d/dL (6.2-8.2)
[2023-03-28 15:56] LABS: % Iron Saturation 18.41 (15.00-50.00); ALT 23 U/L (10-49); AST 32 U/L (14-35); Albumin 3.5 d/dL (3.8-4.9); Alkaline Phosphatase 92 U/L (41-126); BUN/Creat Ratio 17.85 Ratio (12.00-20.00); Blood Urea Nitrogen 23.2 mg/dL (9.0-27.0); Carbon Dioxide 29.5 mmol/L (21.6-31.8); Ceruloplasmin 21.7 mg/dL (20.0-60.0); Chloride 94 mmol/L (96-109); Globulin 2.5 d/dL (1.6-3.3); Glucose 157 mg/dL (70-110); Iron 44 UG/DL (65-175); Potassium 3.9 mmol/L (3.5-5.5); Sodium 138 mmol/L (135-145); Total Bilirubin 0.4 mg/dL (0.3-1.2); Total Iron Binding Capacity 239 UG/DL (228-460)
[2023-03-28 15:59] LABS: Basophils # (A) 0.05 X 10*3/uL (0.00-0.10); Basophils % (A) 0.6 %; Eosinophils # (A) 0.06 X 10*3/uL (0.04-0.35); Eosinophils % (A) 0.8 %; HGB 14.6 d/dL (12.0-15.0); Lymphocytes # (A) 1.04 X 10*3/uL (0.90-5.00); Lymphocytes % (A) 13.1 %; MCH 29.3 pg (27.0-32.0); MCHC 31.7 d/dL (32.0-37.0); MCV 92.2 FL (80.0-97.0); Mean Platelet Volume 9.5 FL (9.5-12.2); Monocytes # (A) 0.63 X 10*3/uL (0.20-1.00); Monocytes % (A) 7.9 %; NRBC Per 100 WBC 0 X 10*3/uL (0.00-0.01); Neutrophils # (A) 6.13 X 10*3/uL (1.80-7.70); Neutrophils % (A) 77.2 %; Platelet Count 259 X 10*3/uL (140-440); RBC 4.99 X 10*6/uL (4.40-5.60); RDW 13.9 % (11.5-14.5); WBC 7.94 X 10*3/uL (4.50-10.00)
[2023-03-28 18:00] LABS: Hepatitis B Surface Antigen Nonreactive; Hepatitis C IgG Antibody Nonreactive
[2023-03-29 10:14] LABS: Smooth Muscle Antibody 7 UNITS (<20)
[2023-03-30 11:35] LABS: Alpha 1 Anti-Trypsin 221 mg/dL (90 - 200)
== END | disposition home or self-care (01) ==
LOC: LABWHC1 11:16
PROVIDERS: ATTEND Internal Medicine Gastroenterology
DX: R18.8 Other ascites (principal)
CPT/HCPCS: 36415; 80053; 82103; 82104; 82390; 82728; 83516; 83540; 83550; 84165; 85025; 86038; 86803; 87340

== ENCOUNTER → 2023-03-31 | Outpatient (CLI) | payer BC ==
--- NOTE | 2023-03-31 15:31 | US ---
EXAMINATION TYPE: US abdomen limited DATE OF EXAM: 03/31/2023 COMPARISON: CT 2022 CLINICAL INDICATION: Male, 72 years old with history of R18.8 OTHER ASCITIES; TECHNIQUE: Multiple sonographic images of the right upper quadrant are obtained. FINDINGS: EXAM MEASUREMENTS: Liver Length: 13.7 cm Gallbladder Wall: 0.2 cm CBD: 0.5 cm Right Kidney: 10.9 x 3.9 x 4.1 cm Pancreas: obscured by overlying midline bowel gas and ascites Liver: mildly course echotexture Gallbladder: wnl Evidence for sonographic Sanderson's sign: no CBD: visualized portions wnl, limited by overlying bowel gas Right Kidney: wnl Ascites seen in all 4 quadrants IMPRESSION: 1. Ascites. 2. Suspicious acute ultrasound right upper quadrant changes not evident
== END | disposition home or self-care (01) ==
LOC: RADUSWWP 08:48
PROVIDERS: ATTEND Internal Medicine Gastroenterology
DX: R18.8 Other ascites (principal)
CPT/HCPCS: 76705

== ENCOUNTER → 2023-03-31 | Outpatient (CLI) | payer BC | END | disposition home or self-care (01) | LOC: LABWHC1 13:00 | PROVIDERS: ATTEND Family Medicine | DX: K74.60 Unspecified cirrhosis of liver (principal) | CPT/HCPCS: 36415; 82140 ==

== ENCOUNTER 2023-04-15 21:22 | Inpatient (IN) | payer BC, MEDICARE ==
[2023-04-15] MEDS ORDERED: MORPHINE SULFATE 4 MG/ML SYRINGE IVP STA (21:39)
[2023-04-15] MEDS ORDERED: SODIUM CHLORIDE 0.9% 1,000 ML IV STA (21:39)
[2023-04-15] MEDS ORDERED: ONDANSETRON 4 MG/2 ML VIAL IVP STA (21:39)
[2023-04-15 21:49] LABS: Basophils % (A) 0 %; Eosinophils # (A) 0.1 k/uL (0-0.7); Eosinophils % (A) 1 %; HCT 40.5 % (39.0-53.0); HGB 13.7 gm/dL (13.0-17.5); Lymphocytes # (A) 0.9 k/uL (1.0-4.8); Lymphocytes % (A) 14 %; MCH 30.6 pg (25.0-35.0); MCHC 33.9 g/dL (31.0-37.0); MCV 90.3 fL (80.0-100.0); Mean Platelet Volume 7.2; Monocytes # (A) 0.4 k/uL (0-1.0); Monocytes % (A) 6 %; Neutrophils # (A) 4.9 k/uL (1.3-7.7); Neutrophils % (A) 78 %; Platelet Count 224 k/uL (150-450); RBC 4.49 m/uL (4.30-5.90); RDW 13.6 % (11.5-15.5); WBC 6.3 k/uL (3.8-10.6)
[2023-04-15 21:53] LABS: ALT 23 U/L (4-49); AST 36 U/L (17-59); African American GFR (CKD) >90 (>60 ml/min/1.73 sqM); Albumin 2.7 g/dL (3.5-5.0); Alkaline Phosphatase 79 U/L (38-126); Amylase 47 U/L (30-110); Anion Gap 5 mmol/L; Blood Urea Nitrogen 25 mg/dL (9-20); Carbon Dioxide 31 mmol/L (22-30); Chloride 95 mmol/L (98-107); Glucose 103 mg/dL (74-99); Lipase 200 U/L (23-300); Non-African American GFR(CKD) 83 (>60 ml/min/1.73 sqM); Potassium 2.8 mmol/L (3.5-5.1); Sodium 131 mmol/L (137-145); Total Bilirubin 0.6 mg/dL (0.2-1.3); Total Protein 5.3 g/dL (6.3-8.2)
[2023-04-15 22:05] LABS: INR 1.1 (<1.2); Partial Thromboplastin Time 23.5 sec (22.0-30.0); Prothrombin Time 11.1 sec (9.0-12.0)
--- NOTE | 2023-04-15 23:00 | ED ---
Abdominal Pain HPI - General Chief Complaint: Abdominal Pain Stated Complaint: Abdominal Pain Time Seen by Provider: 04/15/23 21:38 Source: family, RN notes reviewed, old records reviewed Mode of arrival: EMS Limitations: altered mental status - History of Present Illness Initial Comments: This is a 72-year-old male who several from dementia unable to give history. History of his entered by patient's family at bedside. Abdominal distention abdominal pain. Patient has no complaints aside from weakness severe weakness MD Complaint: abdominal pain -: hour(s) Location: diffuse, epigastric, suprapubic Radiation: epigastric, suprapubic Migration to: no migration Severity: moderate Severity scale (1-10): 7 Quality: cramping, aching Consistency: constant Improves With: nothing Worsens With: nothing Associated Symptoms: denies other symptoms - Related Data Home Medications Medication Instructions Recorded Confirmed Atorvastatin [Lipitor] 20 mg PO DAILY 02/15/19 04/16/23 Primidone [Mysoline] 50 mg PO DAILY 02/15/19 04/16/23 Tamsulosin [Flomax] 0.4 mg PO DAILY 02/15/19 04/16/23 Terazosin [Hytrin] 2 mg PO DAILY 02/15/19 04/16/23 Previous Rx's Medication Instructions Recorded Furosemide [Lasix] 20 mg PO DAILY #0 04/22/23 Midodrine [ProAmatine] 10 mg PO AC-TID 30 Days #180 tab 04/22/23 Spironolactone [Aldactone] 50 mg PO BID #0 04/22/23 droNABinol [Marinol] 5 mg PO AC-BID 30 Days #60 cap 04/22/23 Allergies Allergy/AdvReac Type Severity Reaction Status Date / Time No Known Allergies Allergy Verified 04/16/23 10:28 Review of Systems ROS Statement: Those systems with pertinent positive or pertinent negative responses have been documented in the HPI. ROS Other: All systems not noted in ROS Statement are negative. Past Medical History Past Medical History: Dementia, Hyperlipidemia, Hypertension, Prostate Disorder Additional Past Medical History / Comment(s): enlarged prostate, lewiebody dementia, parkinsons History of Any Multi-Drug Resistant Organisms: None Reported Past Surgical History: Hernia Repair Past Psychological History: No Psychological Hx Reported Smoking Status: Never smoker Past Alcohol Use History: None Reported Past Drug Use History: None Reported General Exam Limitations: altered mental status General appearance: alert, in no apparent distress Head exam: Present: atraumatic, normocephalic, normal inspection Eye exam: Present: normal appearance, PERRL, EOMI. Absent: scleral icterus, conjunctival injection, periorbital swelling ENT exam: Present: normal exam, mucous membranes moist Neck exam: Present: normal inspection. Absent: tenderness, meningismus, lymphadenopathy Respiratory exam: Present: normal lung sounds bilaterally. Absent: respiratory distress, wheezes, rales, rhonchi, stridor Cardiovascular Exam: Present: regular rate, normal rhythm, normal heart sounds. Absent: systolic murmur, diastolic murmur, rubs, gallop, clicks GI/Abdominal exam: Present: distended, tenderness, guarding, normal bowel sounds. Absent: rebound, rigid Extremities exam: Present: normal inspection, full ROM, normal capillary refill. Absent: tenderness, pedal edema, joint swelling, calf tenderness Back exam: Present: normal inspection Neurological exam: Present: alert, oriented X3, CN II-XII intact Psychiatric exam: Present: normal affect, normal mood Skin exam: Present: warm, dry, intact, normal color. Absent: rash Course Vital Signs 04/15/23 04/16/23 04/16/23 21:44 00:51 03:39 Temperature 97.9 F 96.7 F L Pulse Rate 82 72 Respiratory 16 16 18 Rate Blood Pressure 110/83 102/80 Blood Pressure 118/79 [Left Arm] O2 Sat by Pulse 92 L 95 94 L Oximetry 04/16/23 04/16/23 04:00 04:41 Temperature 97.6 F 97.6 F Pulse Rate 73 73 Respiratory 18 16 Rate Blood Pressure 109/8 109/81 Blood Pressure [Left Arm] O2 Sat by Pulse 94 L 94 L Oximetry - Reevaluation(s) Reevaluation #1: 04/16/23 02:18 Record is reviewed Reevaluation #2: 04/16/23 02:18 Patient has no improvement in symptoms here in the ER Reevaluation #3: 04/16/23 02:18 Patient informed results and questions answered Reevaluation #4: 04/16/23 02:18 Was pt. sent in by a medical professional or institution? @ -no Did you speak to anyone other than the patient for history? @ -Yes patient's family provides all history at bedside, concern for signi ficant weakness Did you review nursing and triage notes? @ -agree Were old charts reviewed? @ -yes Differential Diagnosis? @ -prior EKG interpreted by me (3pts min.)? @ -yes X-rays interpreted by me (1pt min.)? @ -no CT interpreted by me (1pt min.)? @ -yes U/S interpreted by me (1pt. min.)? @ -no What testing was considered but not performed? (CT, X-rays, U/S, labs)? Why? @ -no What meds were considered but not given? Why? @ -no Did you discuss the management of the patient with other professionals? @ -no Did you reconcile home meds? @ -no Was smoking cessation discussed for >3mins.? @ -no Was critical care preformed (if so, how long)? @ -no Were there social determinants of health that impacted care today? How? (Homelessness, low income, unemployed, alcoholism, drug addiction, transportation, low edu. Level, literacy, decrease access to med. care, longterm, rehab)? @ -no Was there de-escalation of care discussed even if they declined? (Discuss DNR or withdrawal of care, Hospice)? @ -no What co-morbidities impacted this encounter? (DM, HTN, Smoking, COPD, CAD, Cancer, CVA, Hep., AIDS, mental health diagnosis, sleep apnea, morbid obesity)? @ -none Was patient admitted / discharged? @ -72 male to the emergency department for evaluation patient presents today for evaluation of abdominal pain significant ascites and hypokalemia this patient will be admitted for replacement and both diagnostic and therapeutic paracentesis Admitted Undiagnosed new problem with uncertain prognosis? @ -no Drug Therapy requiring intensive monitoring for toxicity (Heparin, Nitro, Ins ulin, Cardizem)? @ -no Were any procedures done? @ -no Diagnosis/symptom? @ -Ascites hypokalemia abdominal pain and weakness Acute, or Chronic, or Acute on Chronic? @ -acute Uncomplicated (without systemic symptoms) or Complicated (systemic symptoms)? @ -complicated Side effects of treatment? @ -no Exacerbation, Progression, or Severe Exacerbation] @ -no Poses a threat to life or bodily function? @ -no Reevaluation #5: 04/16/23 02:18 Differential Weakness: Hypoglycemia, shock, sepsis, hyponatremia, anemia, infection, CO, ETOH, adverse medicine reaction, overdose, stroke, this is not meant to be an all-inclusive list. Differential Abdominal Pain Women: Appendicitis, Cholecystitis, diverticulosis, ischemic bowel, pancreatitis, hepatitis, UTI, gastroenteritis, AAA, incarcerated hernia, bowel obstruction, c onstipation, inflammatory bowel, hepatitis, peptic ulcer disease, splenic infarction, perforated viscus, vulvitis, ovarian torsion, PID, kidney stone, placenta abruption, this is not meant to be an all-inclusive list - Consultations Consultation #1: Spoke with admitting physicians who agree to admit this patient Medical Decision Making - Medical Decision Making 72 male to the emergency department for evaluation patient presents today for evaluation of abdominal pain significant ascites and hypokalemia this patient will be admitted for replacement and both diagnostic and therapeutic para centesis - Lab Data Result diagrams: 04/21/23 07:31 04/23/23 04:36 Lab Results 04/15/23 04/15/23 04/15/23 Range/Units 21:32 21:32 21:32 WBC 6.3 (3.8-10.6) k/uL RBC 4.49 (4.30-5.90) m/uL Hgb 13.7 (13.0-17.5) gm/dL Hct 40.5 (39.0-53.0) % MCV 90.3 (80.0-100.0) fL MCH 30.6 (25.0-35.0) pg MCHC 33.9 (31.0-37.0) g/dL RDW 13.6 (11.5-15.5) % Plt Count 224 (150-450) k/uL MPV 7.2 Neutrophils % 78 % Lymphocytes % 14 % Monocytes % 6 % Eosinophils % 1 % Basophils % 0 % Neutrophils # 4.9 (1.3-7.7) k/uL Lymphocytes # 0.9 L (1.0-4.8) k/uL Monocytes # 0.4 (0-1.0) k/uL Eosinophils # 0.1 (0-0.7) k/uL Basophils # 0.0 (0-0.2) k/uL PT 11.1 (9.0-12.0) sec INR 1.1 (<1.2) APTT 23.5 (22.0-30.0) sec Sodium 131 L (137-145) mmol/L Potassium 2.8 L (3.5-5.1) mmol/L Chloride 95 L (98-107) mmol/L Carbon Dioxide 31 H (22-30) mmol/L Anion Gap 5 mmol/L BUN 25 H (9-20) mg/dL Creatinine 0.93 (0.66-1.25) mg/dL Est GFR (CKD-EPI)AfAm >90 (>60 ml/min/1.73 sqM) Est GFR (CKD-EPI)NonAf 83 (>60 ml/min/1.73 sqM) Glucose 103 H (74-99) mg/dL Plasma Lactic Acid Boy (0.7-2.0) mmol/L Calcium 8.0 L (8.4-10.2) mg/dL Phosphorus (2.5-4.5) mg/dL Magnesium (1.6-2.3) mg/dL Total Bilirubin 0.6 (0.2-1.3) mg/dL AST 36 (17-59) U/L ALT 23 (4-49) U/L Alkaline Phosphatase 79 (38-126) U/L Total Protein 5.3 L (6.3-8.2) g/dL Albumin 2.7 L (3.5-5.0) g/dL Amylase 47 (30-110) U/L Lipase 200 (23-300) U/L 04/15/23 04/15/23 Range/Units 21:32 21:32 WBC (3.8-10.6) k/uL RBC (4.30-5.90) m/uL Hgb (13.0-17.5) gm/dL Hct (39.0-53.0) % MCV (80.0-100.0) fL MCH (25.0-35.0) pg MCHC (31.0-37.0) g/dL RDW (11.5-15.5) % Plt Count (150-450) k/uL MPV Neutrophils % % Lymphocytes % % Monocytes % % Eosinophils % % Basophils % % Neutrophils # (1.3-7.7) k/uL Lymphocytes # (1.0-4.8) k/uL Monocytes # (0-1.0) k/uL Eosinophils # (0-0.7) k/uL Basophils # (0-0.2) k/uL PT (9.0-12.0) sec INR (<1.2) APTT (22.0-30.0) sec Sodium (137-145) mmol/L Potassium (3.5-5.1) mmol/L Chloride (98-107) mmol/L Carbon Dioxide (22-30) mmol/L Anion Gap mmol/L BUN (9-20) mg/dL Creatinine (0.66-1.25) mg/dL Est GFR (CKD-EPI)AfAm (>60 ml/min/1.73 sqM) Est GFR (CKD-EPI)NonAf (>60 ml/min/1.73 sqM) Glucose (74-99) mg/dL Plasma Lactic Acid Boy 1.0 (0.7-2.0) mmol/L Calcium (8.4-10.2) mg/dL Phosphorus 3.5 (2.5-4.5) mg/dL Magnesium 2.0 (1.6-2.3) mg/dL Total Bilirubin (0.2-1.3) mg/dL AST (17-59) U/L ALT (4-49) U/L Alkaline Phosphatase (38-126) U/L Total Protein (6.3-8.2) g/dL Albumin (3.5-5.0) g/dL Amylase (30-110) U/L Lipase (23-300) U/L - Radiology Data Radiology results: report reviewed (CT abdomen and pelvis is negative for acute disease), image reviewed Disposition Clinical Impression: Abdominal pain, Hypokalemia, Ascites, Weakness, Ascites Disposition: ADMITTED IP TO THIS [facility] Condition: Stable Is patient prescribed a controlled substance at d/c from ED?: No Time of Disposition: 01:00
--- NOTE | 2023-04-15 23:40 | CT ---
EXAMINATION TYPE: CT abdomen pelvis w con DATE OF EXAM: 04/15/2023 COMPARISON: 03/18/2023 INDICATION: AMS, ABDOMINAL PAIN. PROSTATE DISORDER, NEW DEVELOPING BED SORES DLP: 1420.8 mGycm, Automated exposure control for dose reduction was used. CONTRAST: 100ML mL of Isovue 300. Study performed without Oral Contrast TECHNIQUE: Axial images were obtained from above the diaphragm to the pubic rami in the axial plane a t 5 mm thick sections. Reconstructed images are reviewed on the computer in the coronal plane. FINDINGS: No obvious subcutaneous wounds are identified. Limited CT sections are obtained the lung bases. Small bilateral pleural effusions are present. Some minimal compressive atelectasis may be adjacent. CT ABDOMEN: Large degree of ascites is present. Soft tissue edema is noted. Liver: Small Spleen: Normal Pancreas: Normal Adrenal glands: The adrenal glands are normal. Gallbladder: Normal Kidneys: No masses are evident. No hydronephrosis is present. No cysts are present. No renal stone s are identified. Aorta: Vascular calcification is within the aorta. Inferior vena cava: There is some flattening of the inferior vena cava related to the patient's volum e status. CT PELVIS: Loops of bowel within the abdomen and pelvis are nonspecific. No suspicious dilated loops of bowel ar e evident. Study is without oral contrast limiting evaluation. Appendix: Not identified Urinary bladder: Urinary bladder wall motion mild diffuse thickening. Correlate for cystitis. Other e tiologies are not excluded. Genitourinary structures: Prostate is mildly prominent and contains calcification. Osseous structures: No suspicious lytic or sclerotic lesions. IMPRESSIONS: 1. Large degree of ascites. Subcutaneous edema is also noted.
[2023-04-16 00:56] LABS: Phosphorus 3.5 mg/dL (2.5-4.5)
[2023-04-16] MEDS ORDERED: ONDANSETRON 4 MG/2 ML VIAL IVP PRN (01:08)
[2023-04-16] MEDS ORDERED: NALOXONE 0.4 MG/ML 1 ML VIAL IV PRN (01:08)
[2023-04-16] MEDS: POTASSIUM CHLORIDE 20 MEQ in WATER FOR INJECTION 1 100ML.BAG IVPB SCH ×4 (01:22→10:19)
--- NOTE | 2023-04-16 03:21 | P.HPIM ---
History of Present Illness H&P Date: 04/16/23 Chief Complaint: abd pain 72 year old male with hypertension patient coming in for abd discomfort , that has been progressive over the past few months. family at bedside is providing the history , patient himself is tired and sleepy at this time. family indicates patient has been progressively getting weaker, with poor appetite over the past few months, no report of cancer, GI bleeding, fever, chills, cough, SOB, chest pain , nausea or vomiting. patient has underwent some workup over the past couple months for progressive increase in abd girth , weight loss and poor appetite with no definite diagnosis no report of alcohol abuse, illicit drugs or smoking, no history of cancer, no history of hepatitis review of systems Pertinent positives as noted in HPI. All other systems were reviewed and are negative on exam Constitutional: No acute distress, cooperative Eyes: Anicteric sclerae, moist conjunctiva, Pupils equal round reactive to light ENMT: NC/AT Oropharynx clear, no erythema, or exudates Neck: Supple, no masses, or JVD No carotid bruits No thyromegaly Lungs: Clear to auscultation Clear to percussion Normal respiratory effort, no accessory muscle use Cardiovascular: Heart regular in rate and rhythm, No murmurs, gallops, or rubs +2 bilateral peripheral edema Abdominal: distended , positive shifting dullness and transmission thrill Nontender, no guarding, rebound or rigidity Abdomen moving with respiration Normoactive bowel sounds No hepatomegaly, No splenomegaly No palpable mass No abdominal wall hernia noted Skin: Normal temperature, tone, texture, turgor Extremities: No digital cyanosis No clubbing Pedal pulses intact and symmetrical Radial pulses intact and symmetrical No calf tenderness Psychiatric: sleepy , easily arousable , oriented to person, place Neuro Muscles Strength 4/5 in all 4 extremities Sensation to light touch grossly present throughout Cranial nerves II-XII grossly intact Lymphatics: no palpable cervical or supraclavicular lymph nodes Past Medical History Past Medical History: Dementia, Hyperlipidemia, Hypertension, Prostate Disorder Additional Past Medical History / Comment(s): enlarged prostate, lewiebody dementia, parkinsons History of Any Multi-Drug Resistant Organisms: None Reported Past Surgical History: Hernia Repair Past Psychological History: No Psychological Hx Reported Smoking Status: Never smoker Past Alcohol Use History: None Reported Past Drug Use History: None Reported Medications and Allergies Home Medications Medication Instructions Recorded Confirmed Type Ascorbic Acid [Vitamin C] 500 mg PO DAILY 02/15/19 02/15/19 History Atorvastatin [Lipitor] 20 mg PO HS 02/15/19 02/15/19 History Cholecalciferol [Vitamin D3 (25 1,000 unit PO DAILY 02/15/19 02/15/19 History Mcg = 1000 Iu)] Ferrous Sulfate [Feosol] 325 mg PO DAILY 02/15/19 02/15/19 History Primidone [Mysoline] 50 mg PO HS 02/15/19 02/15/19 History Tamsulosin [Flomax] 0.4 mg PO DAILY 02/15/19 02/15/19 History Terazosin [Hytrin] 2 mg PO HS 02/15/19 02/15/19 History lisinopriL [Prinivil] 10 mg PO HS 02/15/19 02/15/19 History Allergies Allergy/AdvReac Type Severity Reaction Status Date / Time No Known Allergies Allergy Verified 03/18/23 19:37 Physical Exam Vitals: Vital Signs Temp Pulse Resp BP Pulse Ox 04/15/23 21:44 97.9 F 82 16 110/83 92 L Intake and Output 04/15/23 04/15/23 04/16/23 14:59 22:59 06:59 Other: Weight 77.111 kg Results CBC & Chem 7: 04/15/23 21:32 04/15/23 21:32 Labs: Abnormal Lab Results - Last 24 Hours (Table) 04/15/23 04/15/23 Range/Units 21:32 21:32 Lymphocytes # 0.9 L (1.0-4.8) k/uL Sodium 131 L (137-145) mmol/L Potassium 2.8 L (3.5-5.1) mmol/L Chloride 95 L (98-107) mmol/L Carbon Dioxide 31 H (22-30) mmol/L BUN 25 H (9-20) mg/dL Glucose 103 H (74-99) mg/dL Calcium 8.0 L (8.4-10.2) mg/dL Total Protein 5.3 L (6.3-8.2) g/dL Albumin 2.7 L (3.5-5.0) g/dL Assessment and Plan Assessment: 72 year old male with hypertension , presented for abd discomfort and increase size, I discussed thecase with ED doc, and I accepted the admission for diagnostic and theraputic paracenthesis with anticipated length of stay < 2 midnights large ascites , symptomatic CT abd showed large ascites no other pathology blood work showing unremarkable CBC WBC 6.3, Hgb 13.7 liver enzymes unremarkable except for low protein and albumen IR for paracenthesis severe protein calorie malnutrition encourage to increase PO intake monitor for refeeding syndrome hypertension resume lisinopril hold terazosin , due to borderline low blood pressure BPH resume flomax full code DVT PPX heparin sc tid
[2023-04-16] MEDS: SODIUM CHLORIDE 0.9% 1,000 ML IV SCH (07:23)
[2023-04-16] MEDS: HEPARIN SODIUM,PORCINE/PF 5,000 UNIT/0.5 ML SYRINGE SQ SCH ×3 (10:19→22:21)
[2023-04-16] MEDS: TAMSULOSIN 0.4 MG CAP.ER.24H PO SCH (10:19)
[2023-04-16] MEDS: lisinopriL 10 MG TAB PO SCH (22:19)
[2023-04-17] MEDS: SODIUM CHLORIDE 0.9% 1,000 ML IV SCH (03:58)
[2023-04-17] MEDS: MORPHINE SULFATE 4 MG/ML SYRINGE IV PRN (06:05)
[2023-04-17] MEDS: HEPARIN SODIUM,PORCINE/PF 5,000 UNIT/0.5 ML SYRINGE SQ SCH ×2 (07:22→17:37)
[2023-04-17 08:53] LABS: Basophils # (A) 0.04 X 10*3/uL (0.00-0.10); Basophils % (A) 0.5 %; Eosinophils # (A) 0.03 X 10*3/uL (0.04-0.35); Eosinophils % (A) 0.4 %; HCT 41.4 % (39.6-50.0); HGB 13.3 d/dL (12.0-15.0); Lymphocytes # (A) 0.75 X 10*3/uL (0.90-5.00); MCHC 32.1 d/dL (32.0-37.0); MCV 93.5 FL (80.0-97.0); Monocytes # (A) 0.64 X 10*3/uL (0.20-1.00); Monocytes % (A) 7.7 %; NRBC Per 100 WBC 0 X 10*3/uL (0.00-0.01); Neutrophils # (A) 6.82 X 10*3/uL (1.80-7.70); Neutrophils % (A) 81.9 %; Platelet Count 248 X 10*3/uL (140-440); RBC 4.43 X 10*6/uL (4.40-5.60); RDW 14.6 % (11.5-14.5); WBC 8.32 X 10*3/uL (4.50-10.00)
[2023-04-17 09:19] LABS: ALT 19 U/L (10-49); AST 29 U/L (14-35); Albumin 2.9 d/dL (3.8-4.9); Albumin/Globulin Ratio 1.32 Ratio (1.60-3.17); Alkaline Phosphatase 80 U/L (41-126); BUN/Creat Ratio 19.75 Ratio (12.00-20.00); Blood Urea Nitrogen 23.7 mg/dL (9.0-27.0); Calcium 8.7 mg/dL (8.7-10.3); Carbon Dioxide 25.4 mmol/L (21.6-31.8); Chloride 99 mmol/L (96-109); Globulin 2.2 d/dL (1.6-3.3); Glucose 84 mg/dL (70-110); Magnesium 2.1 mg/dL (1.5-2.4); Phosphorus 3.7 mg/dL (2.4-5.1); Potassium 3.7 mmol/L (3.5-5.5); Sodium 138 mmol/L (135-145); Total Bilirubin 0.4 mg/dL (0.3-1.2); Total Protein 5.1 d/dL (6.2-8.2)
[2023-04-17] MEDS: TAMSULOSIN 0.4 MG CAP.ER.24H PO SCH (09:46)
[2023-04-17] MEDS ORDERED: CALCIUM CARBONATE 500 MG CHEWABLE PO PRN (09:50)
[2023-04-17] MEDS ORDERED: PANTOPRAZOLE 40 MG/10 ML VIAL IVP SCH (10:00)
--- NOTE | 2023-04-17 10:06 | P.PN ---
Subjective Progress Note Date: 04/17/23 Pt still has very poor appetite, borderline low BP. Gen: awake, alert HEENT: normocephalic, atraumatic, good hearing acuity, moist mucous membranes Resp: good air exchange, breathing comfortably with no accessory muscle use CVS: good distal perfusion x 4, GI: soft, NTTP, ND, positive ascites : no SPT, no CVAT, preciado catheter not present MSK: Bilateral pitting edema, no clubbing Neuro: non-focal, moving all extremities Psych: cooperative, euthymic mood Hospital course: 72-year-old man with medical history of hypertension presented for evaluation of generalized weakness, abdominal discomfort. In the emergency room, patient was afebrile, 110/83, heart rate 82, 92% on room air. CBC is unremarkable. Chemistries showed a sodium of 131, potassium of 2.8, chloride 95, CO2 31, BUN of 25. Liver function tests showed total protein of 5.3, albumin of 2.7. Lipase was 200. Abdomen/pelvis CT showed a large degree of ascites, subcutaneous edema, as well as bladder wall thickening. Case was discussed the emergency room at her incision was made to admit the patient to the hospital for further evaluation of ascites. Assessment: Large ascites Hyponatremia Hypokalemia Metabolic alkalosis Hypertension Plan: Today, patient is afebrile, 88/59, heart rate 78, 100% on room air CBC is unremarkable Basic metabolic panel shows improved sodium to 138, improved potassium of 3.7 Liver function tests show total protein of 5.1, albumin of 2.9 Ordered CBC, basic metabolic panel, magnesium for tomorrow Ordered UA, UPC, urine sodium, PTT/PT/INR for today to evaluate for nephrotic syndrome Workup for liver cirrhosis during previous encounters: Ceruloplasmin is normal, alpha-1 anti-trypsin levels and genotype are normal, SPEP does not have a mono clonal protein, ferritin levels are appropriate, iron levels are low and not high, chronic hepatitis panel is negative/nonreactive, BROOKS negative, anti-smooth muscle antibody was within normal limits. Echocardiogram shows normal ejection fraction, mild pulmonary hypertension. Abdominal ultrasound showed ascites without evidence of hepatic vein thrombosis. CT of the abdomen/pelvis showed large volume ascites with distended abdomen, bilateral pleural effusions with cardiomegaly, circumferential wall thickening of the colon consistent with hepa tic colopathy. Continue lisinopril 10 mg Consulted interventional radiology for paracentesis, diagnostic and therapeutic Nephrotic syndrome workup as above Will re-order Abd US [facility] Patient is Full Code Objective - Vital Signs Vital signs: Vital Signs Temp 97.5 F L 04/17/23 07:58 Pulse 78 04/17/23 07:58 Resp 18 04/17/23 07:58 BP 88/59 04/17/23 07:58 Pulse Ox 100 04/17/23 07:58 FiO2 Intake & Output 04/16/23 04/17/23 04/17/23 18:59 06:59 18:59 Other: Voiding Method Toilet Diaper Incontinent # Voids 3 1 # Bowel Movements 1 - Labs CBC & Chem 7: 04/17/23 04:54 04/17/23 04:54 Labs: Abnormal Lab Results - Last 24 Hours (Table) 04/17/23 04/17/23 Range/Units 04:54 04:54 RDW 14.6 H (11.5-14.5) % Lymphocytes # 0.75 L (0.90-5.00) X 10*3/uL Eosinophils # 0.03 L (0.04-0.35) X 10*3/uL Anion Gap 13.60 H (4.00-12.00) mmol/L Total Protein 5.1 L (6.2-8.2) d/dL Albumin 2.9 L (3.8-4.9) d/dL Albumin/Globulin Ratio 1.32 L (1.60-3.17) Ratio
[2023-04-17 12:44] VITALS: BMI 21.8
[2023-04-17 13:48] LABS: INR 1.1 (<1.2); Partial Thromboplastin Time 23.1 sec (22.0-30.0); Prothrombin Time 11.3 sec (9.0-12.0)
--- NOTE | 2023-04-17 14:22 | US ---
EXAMINATION TYPE: US abdomen limited DATE OF EXAM: 04/17/2023 COMPARISON: NONE CLINICAL INDICATION: Male, 72 years old with history of Plz do w doppler of the liver to r/o cheko cornejo; TECHNIQUE: Multiple sonographic images of the right upper quadrant are obtained. FINDINGS: EXAM MEASUREMENTS: Liver Length: 13.0 cm Gallbladder Wall: 0.3 cm CBD: 0.5 cm Right Kidney: 9.8 x 3.8 x 4.1 cm TIME STUDY STATISTICIAN NOTES:Technical limitations due to large amount of overlying bowel content and ascites Pancreas: Obscured by bowel gas Liver: portal vein appears patent with hepatopetal flow, as visualized Gallbladder: possible stone Evidence for sonographic Sanderson's sign: no CBD: limited evaluation Right Kidney: no evidence of hydronephrosis or mass Real-time observation by the radiologist was performed. IMPRESSION: 1. There appears to be normal flow direction of the portal vein. 2. Ascites. 3. Cholelithiasis
--- NOTE | 2023-04-17 14:40 | US ---
Ultrasound-guided paracentesis. DATE OF EXAM: 04/17/2023 CLINICAL HISTORY: Ascites The procedure was discussed with the patient. The risks, complications, benefits, and alternatives we re discussed and any questions were answered. Informed consent was obtained. The patient was placed s upine on the ultrasound table and prepped and draped in the usual sterile fashion. All elements of maximal barrier technique were utilized. Under ultrasound guidance, access into the right lower quadrant was obtained, via the paracentesis catheter system and direct ultrasound guidanc e. Approximately 2 liters of straw-colored fluid was removed. Sample sent to pathology for analysis. The patient was stable throughout the procedure and remained stable upon discharge from Department of Ra diology. IMPRESSION: Successful paracentesis under ultrasound guidance.
[2023-04-17] MEDS ORDERED: ALBUMIN HUMAN 25% 50 ML in EMPTY BAG 1 BAG IVPB ONE (15:23)
[2023-04-17 16:39] LABS: Appearance,Urine Cloudy (Clear); Bacteria,Urine Many /hpf; Bilirubin,Urine Negative (Negative); Blood,Urine Moderate (Negative); Color,Urine Yellow; Glucose,Urine (UA) Negative (Negative); Ketones,Urine 1+ (Negative); Leukocyte Esterase,Urine Large (Negative); Mucus,Urine Many /hpf; Nitrite,Urine Negative (Negative); PH, Urine 5.5 (5.0-8.0); Protein,Urine 1+ (Negative); RBC,Urine 58 /hpf (0-5); Specific Gravity,Urine 1.036 (1.001-1.035); WBC,Urine 120 /hpf (0-5)
[2023-04-17 16:46] LABS: Creatinine,Urine Random 299.7 mg/dL; Protein/Creatinine Ratio,Urine 0.107
[2023-04-17 16:47] LABS: Creatinine,Urine Random 301.9 mg/dL
[2023-04-17] MEDS: lisinopriL 10 MG TAB PO SCH (21:37)
[2023-04-17 22:32] LABS: Amylase, Fluid Source Ascites; Amylase,Body Fluid 22 U/L; Glucose, BF Source Ascites; Glucose, Body Fluid 76 mg/dL; LDH, Body Fluid Source Ascites; T. Protein, Body Fluid Source Ascites; Total Protein, Body Fluid 3080 mg/dL
[2023-04-18] MEDS: HEPARIN SODIUM,PORCINE/PF 5,000 UNIT/0.5 ML SYRINGE SQ SCH ×3 (00:17→17:34)
[2023-04-18] MEDS: SODIUM CHLORIDE 0.9% 1,000 ML IV SCH (01:46)
[2023-04-18 03:47] LABS: Appearance,BF Slightly Cloudy (Clear)
[2023-04-18] MEDS: PANTOPRAZOLE 40 MG TABLET PO SCH (06:22)
[2023-04-18] MEDS: TAMSULOSIN 0.4 MG CAP.ER.24H PO SCH (10:06)
[2023-04-18] MEDS: ATORVASTATIN 20 MG TAB PO SCH (10:06)
[2023-04-18 10:17] LABS: BUN/Creat Ratio 18.76 Ratio (12.00-20.00); Blood Urea Nitrogen 31.9 mg/dL (9.0-27.0); Calcium 8.7 mg/dL (8.7-10.3); Carbon Dioxide 25.9 mmol/L (21.6-31.8); Chloride 101 mmol/L (96-109); Glucose 64 mg/dL (70-110); Potassium 3.6 mmol/L (3.5-5.5); Sodium 141 mmol/L (135-145)
[2023-04-18 10:27] LABS: Basophils # (A) 0.04 X 10*3/uL (0.00-0.10); Basophils % (A) 0.4 %; Eosinophils # (A) 0.05 X 10*3/uL (0.04-0.35); Eosinophils % (A) 0.6 %; HCT 43.1 % (39.6-50.0); HGB 13.6 d/dL (12.0-15.0); Lymphocytes # (A) 0.66 X 10*3/uL (0.90-5.00); Lymphocytes % (A) 7.3 %; MCH 29.8 pg (27.0-32.0); MCHC 31.6 d/dL (32.0-37.0); MCV 94.5 FL (80.0-97.0); Mean Platelet Volume 9.9 FL (9.5-12.2); Monocytes # (A) 0.61 X 10*3/uL (0.20-1.00); Monocytes % (A) 6.8 %; NRBC Per 100 WBC 0 X 10*3/uL (0.00-0.01); Neutrophils # (A) 7.63 X 10*3/uL (1.80-7.70); Neutrophils % (A) 84.5 %; Platelet Count 183 X 10*3/uL (140-440); RBC 4.56 X 10*6/uL (4.40-5.60); RDW 14.9 % (11.5-14.5); WBC 9.03 X 10*3/uL (4.50-10.00)
[2023-04-18 11:07] LABS: Magnesium 2.1 mg/dL (1.5-2.4)
[2023-04-18] MEDS ORDERED: DEXTROSE 50% SYRINGE 50 ML IVP PRN ×2 (16:11)
[2023-04-18 16:15] LABS: Glucose,Whole Blood 90 mg/dL (70-110)
[2023-04-18] MEDS: MORPHINE SULFATE 4 MG/ML SYRINGE IV PRN (16:20)
[2023-04-18 16:46] LABS: Glucose,Whole Blood 88 mg/dL (70-110)
--- NOTE | 2023-04-18 16:46 | P.PN ---
Subjective Progress Note Date: 04/18/23 Hospital course: Patient is a very pleasant 72-year-old male with a past medical history of hypertension, hyperlipidemia, BPH, Parkinson's disease and Brandt body dementia. He presented to the emergency department on 04/15/23 with a chief complaint of abdominal pain/discomfort, decreased appetite, lethargy and generalized weakness progressively worsening over the past 2 months. Patient has been worked up outpatient by PCP and key bed installer secondary to these reports. Workup for liver cirrhosis during previous encounters revealed: Ceruloplasmin is normal, alpha-1 anti-trypsin levels and genotype are normal, SPEP does not have a mono clonal protein, ferritin levels are appropriate, iron levels are low and not high, chronic hepatitis panel is negative/nonreactive, BROOKS negative, anti-smooth muscle antibody was within normal limits. Echocardiogram completed 03/10/23 revealed normal ejection fraction revealing only mild pulmonary hypertension. Patient's reports patient has been started on Lasix and Aldactone and did have slight improvement in the swelling of his lower extremities but continues to have increased abdominal girth resulting in decreased appetite and worsening abdominal pain. Patient underwent full evaluation in the emergency department. CBC unremarkable with WBC count of 6.3, hemoglobin 13.7, and platelet count of 224. Coagulation profile normal findings. BMP revealing hyperkalemia with potassium of 2.8, hyponatremia with sodium 131, hypochloremia with chloride of 95, hypercarbia with bicarb of 31, and prerenal azotemia BUN of 25, creatinine 0.93, and GFR greater than 90. Lactic acid was normal findings at 1.0. Liver profile unremarkable. Total protein was 5.3 with albumin of 2.7. CT of the abdomen/pelvis showed large volume ascites with distended abdomen with subcutaneous edema and urinary bladder with mild diffuse thickening concerning for cystitis. Patient admitted under our services with consultation to inte rventional radiology for paracentesis. Consult placed to GI for further evaluation of ascites of unclear origin and to nephrology to rule out nephrotic syndrome. Abdominal ultrasound showed ascites without evidence of hepatic vein thrombosis showing normal flow direction of the portal vein. Physical exam: Vital signs reviewed and stable. General: Nontoxic, no acute distress but is chronically ill-appearing. Derm: Skin pale, warm and dry. Head: Atraumatic, normocephalic and symmetric. Eyes: EOMs intact, no lid lag, and anicteric sclera Mouth: no lip lesions, mucus membranes moist Cardiovascular: regular rate and rhythm with normal S1S2, no murmur, positive posterior tibial pulses bilaterally, and cap refill < 2 seconds. Lungs: Respirations even, regular, and unlabored on room air. Lungs CTA bilaterally, no rhonchi, no rales, no wheezing, and no accessory muscle usage. Abdominal: Distended cirrhotic abdomen, diffuse tenderness to palpation, no guarding, no appreciable organomegaly Ext: ROM intact. No gross muscle atrophy, 2-3+ pitting edema bilateral lower extremities, no contractures Neuro: Speech clear, face symmetrical and CN II-XII grossly intact with no noted focal neuro deficits Psych: Alert and oriented to person, place, time, and situation. Appropriate and pleasant affect. Assessment and Plan of Care: Abdominal pain Ascites Acute cystitis Acute kidney injury -Patient underwent paracentesis on 04/17/23 resulting in successful removal of approximately 2 L of straw-colored fluid. -Patient received 1 dose of albumin 50 ML status post completion of paracentesis. -Ascitic fluid results reviewed showing slightly cloudy appearance otherwise showing no significant abnormalities upon review of laboratory report. -Will follow up on ascitic fluid Gram stain results -Urinalysis positive for infection, CT abdomen and pelvis also reported urinary bladder with diffuse thickening concerning for cystitis. Patient started on Rocephin 1 g every 24 hours pending urine culture results and sensitivity report. -Will follow up on urine culture results. -Order placed for bladder management, monitor for post void residuals -Order placed for strict monitoring of intake and output. -Lisinopril held at this time secondary to acute kidney injury -Consult placed to nephrology secondary to acute kidney injury and to rule out nephrotic syndrome secondary to positive proteinuria, hypoalbuminemia, and edema. -Consult placed to GI for further evaluation of ascites of unclear origin. Hypoglycemia -Morning labs reviewed. BMP revealing hypoglycemia with glucose of 64. -Hypoglycemia likely secondary to decreased oral intake. -Order placed for hypoglycemic protocol with [id number] glucose checks to be obtained every 6 hours. -Order also placed for protein supplements 3 times daily between meals and c onsult to dietitian. Data review: -Vital signs reviewed and stable. Blood pressure 89/53, heart rate 75, respiratory rate 17, SpO2 of 96% on room air and temp 98.0F. -Morning labs reviewed. CBC remains unremarkable. BMP showing hypoglycemia with glucose of 64 and an acute kidney injury with BUN of 31.9, creatinine 1.7, and GFR of 43. -Ascitic fluid results reviewed showing slightly cloudy appearance otherwise showing no significant abnormalities upon review of laboratory report. -Urinalysis positive for protein with elevated total urine protein count of 32 and sodium less than 20. Imaging review: -Abdominal ultrasound completed in radiology report reviewed showing ascites without evidence of hepatic vein thrombosis showing normal flow direction of the portal vein. CODE STATUS: Full code DVT prophylaxis: Heparin Discussed with: Patient, patient's , patient's daughter, RN, and gastrointestinal INSURANCE SALES AGENT Anticipated discharge date: Clinical course to determine Anticipated discharge place: Home versus [facility] facility Patient was seen independently by Nurse Pracitioner. This document was prepared using [email or web address] dictation software. Please allow for errors in systems test analyst, while rare they do occur. I reviewed the documentation as provided by the SORIN above, who is the original author of this note. I agree with the documented assessment and plan, with the following changes: none Objective - Vital Signs Vital signs: Vital Signs Temp 98.0 F 04/18/23 06:55 Pulse 75 04/18/23 06:55 Resp 17 04/18/23 06:55 BP 89/53 04/18/23 06:55 Pulse Ox 96 04/18/23 06:55 FiO2 Intake & Output 04/17/23 04/18/23 04/18/23 18:59 06:59 18:59 Output Total 100 110 Balance -100 -110 Weight 77.111 kg Output: Urine 100 110 Other: Voiding Method Toilet Toilet # Voids 1 # Bowel Movements 1 - Labs CBC & Chem 7: 04/21/23 07:31 04/23/23 04:36 Labs: Abnormal Lab Results - Last 24 Hours (Table) 04/17/23 04/17/23 04/17/23 Range/Units 14:46 16:20 16:20 Ur Specific Gay 1.036 H (1.001-1.035) Urine Protein 1+ H (Negative) Urine Ketones 1+ H (Negative) Urine Blood Moderate H (Negative) Ur Leukocyte Esterase Large H (Negative) Urine RBC 58 H (0-5) /hpf Urine WBC 120 H (0-5) /hpf Urine WBC Clumps Few H (None) /hpf Urine Bacteria Many H (None) /hpf Urine Mucus Many H (None) /hpf U Random Total Protein 32 H (<12) mg/dL Ur Random Sodium (40-220) mmol/L Fluid Appearance Slightly Cloudy A (Clear) 04/17/23 Range/Units 16:20 Ur Specific Gay (1.001-1.035) Urine Protein (Negative) Urine Ketones (Negative) Urine Blood (Negative) Ur Leukocyte Esterase (Negative) Urine RBC (0-5) /hpf Urine WBC (0-5) /hpf Urine WBC Clumps (None) /hpf Urine Bacteria (None) /hpf Urine Mucus (None) /hpf U Random Total Protein (<12) mg/dL Ur Random Sodium <20 L (40-220) mmol/L Fluid Appearance (Clear) Microbiology - Last 24 Hours (Table) 04/17/23 14:46 Gram Stain - Preliminary Ascites Fluid
[2023-04-19 00:09] LABS: Glucose,Whole Blood 80 mg/dL (70-110)
[2023-04-19] MEDS: HEPARIN SODIUM,PORCINE/PF 5,000 UNIT/0.5 ML SYRINGE SQ SCH ×3 (00:18→15:51)
[2023-04-19] MEDS: SODIUM CHLORIDE 0.9% 1,000 ML IV SCH (00:18)
[2023-04-19 06:09] LABS: Glucose,Whole Blood 82 mg/dL (70-110)
[2023-04-19] MEDS: ATORVASTATIN 20 MG TAB PO SCH (08:17)
[2023-04-19] MEDS: PANTOPRAZOLE 40 MG TABLET PO SCH (08:17)
[2023-04-19] MEDS: TAMSULOSIN 0.4 MG CAP.ER.24H PO SCH (08:17)
[2023-04-19 12:06] LABS: Glucose,Whole Blood 115 mg/dL (70-110)
--- NOTE | 2023-04-19 12:40 | P.NPCON ---
History of Present Illness - Reason for Consult acute renal failure - History of Present Illness Patient is a 72-year-old male who was recently diagnosed with liver cirrhosis About one month ago. There is no history of EtOH abuse. patient is admitted to the hospital with complaints of increased weakness, decreased oral intake, decreased urine output. He has had significant abdominal distention with leg edema and did have paracentesis 2 days ago. BP has been low with systolic as low as 80mmHg Patient has an external catheter. Patient was on lisinopril, now discontinued. No history of fever diarrhea nausea or vomiting. Maintained on Lasix at home along with Aldactone. Review of Systems As per HPI Past Medical History Past Medical History: Dementia, Hyperlipidemia, Hypertension, Prostate Disorder Additional Past Medical History / Comment(s): enlarged prostate, lewiebody dementia, parkinsons History of Any Multi-Drug Resistant Organisms: None Reported Past Surgical History: Hernia Repair Past Psychological History: No Psychological Hx Reported Smoking Status: Never smoker Past Alcohol Use History: None Reported Past Drug Use History: None Reported Medications and Allergies Home Medications Medication Instructions Recorded Confirmed Type Atorvastatin [Lipitor] 20 mg PO DAILY 02/15/19 04/16/23 History Primidone [Mysoline] 50 mg PO DAILY 02/15/19 04/16/23 History Tamsulosin [Flomax] 0.4 mg PO DAILY 02/15/19 04/16/23 History Terazosin [Hytrin] 2 mg PO DAILY 02/15/19 04/16/23 History Furosemide [Lasix] 40 mg PO DAILY 04/16/23 04/16/23 History Spironolactone [Aldactone] 100 mg PO DAILY 04/16/23 04/16/23 History Allergies Allergy/AdvReac Type Severity Reaction Status Date / Time No Known Allergies Allergy Verified 04/16/23 10:28 Physical Exam Vitals: Vital Signs Temp Pulse Resp BP Pulse Ox 04/19/23 07:27 97.0 F L 67 18 91/55 98 04/19/23 01:38 98.2 F 98 19 84/51 95 04/18/23 13:45 97.5 F L 75 17 98/65 97 Intake and Output 04/18/23 04/19/23 04/19/23 22:59 06:59 14:59 Output Total 100 Balance -100 Output: Urine 100 Other: Voiding Method External Catheter External Catheter patient is awake, comfortable, week not in any acute distress Examination of the heart S1 and S2 Examination of the lungs bilateral breath sounds are heard decreased breath sounds at the bases [place] abdomen is soft mildly distended, nontender Examination of lower extremities shows 1+ edema bilaterally. RN RADIATION exam grossly intact Results - Lab Results Most recent lab results Calcium 8.7 mg/dL (8.7-10.3) 04/18/23 06:07 Phosphorus 3.7 mg/dL (2.4-5.1) 04/17/23 04:54 Magnesium 2.1 mg/dL (1.5-2.4) 04/18/23 06:07 Urine Creatinine 299.7 mg/dL 04/17/23 16:20 Urine Total Protein 32.0 mg/dL 04/17/23 16:20 04/18/23 06:07 04/18/23 06:07 Assessment and Plan Assessment: 1. Acute kidney injury, most likely hepatorenal syndrome with possibility of hemodynamic ATN with low blood pressure. I will add midodrine and Sandostatin. We will also give albumin. 2. Chronic liver disease, nonalcoholic, recently diagnosed with portal hypertension and ascites status post paracentesis on 04/17/2023 with 2 L of fluid 3. UTI with urine culture growing gram-negative bacilli 4. Hypokalemia status post replacement Plan: continue with antibiotics Add midodrine At Sandostatin IV albumin 1 Add gentle IV hydration If blood pressure remains low. Thank you for the consultation. We will continue to follow the patient with you during his hospitalization
[2023-04-19] MEDS: ALBUMIN HUMAN 25% 50 ML in EMPTY BAG 1 BAG IVPB SCH ×2 (14:43→17:16)
[2023-04-19 15:38] LABS: HCT 42.3 % (39.6-50.0); HGB 13.3 d/dL (12.0-15.0); MCH 29.2 pg (27.0-32.0); MCHC 31.4 d/dL (32.0-37.0); Mean Platelet Volume 9.7 FL (9.5-12.2); NRBC Per 100 WBC 0 X 10*3/uL (0.00-0.01); Platelet Count 225 X 10*3/uL (140-440); RBC 4.55 X 10*6/uL (4.40-5.60); RDW 14.7 % (11.5-14.5)
[2023-04-19] MEDS: OCTREOTIDE 100 MCG/ML INJ SQ SCH (15:52)
[2023-04-19 16:14] LABS: ALT 17 U/L (10-49); AST 28 U/L (14-35); Albumin 2.6 d/dL (3.8-4.9); Alkaline Phosphatase 75 U/L (41-126); BUN/Creat Ratio 23.46 Ratio (12.00-20.00); Blood Urea Nitrogen 30.5 mg/dL (9.0-27.0); Calcium 8.3 mg/dL (8.7-10.3); Carbon Dioxide 26.9 mmol/L (21.6-31.8); Chloride 101 mmol/L (96-109); Glucose 89 mg/dL (70-110); Magnesium 2.1 mg/dL (1.5-2.4); Potassium 3.3 mmol/L (3.5-5.5); Sodium 139 mmol/L (135-145); Total Bilirubin 0.3 mg/dL (0.3-1.2); Total Protein 4.6 d/dL (6.2-8.2)
[2023-04-19] MEDS: MIDODRINE 5 MG TAB PO SCH (17:16)
[2023-04-19 17:28] LABS: Glucose,Whole Blood 112 mg/dL (70-110)
--- NOTE | 2023-04-19 18:47 | P.PN ---
Subjective Progress Note Date: 04/19/23 Hospital course: Patient is a very pleasant 72-year-old male with a past medical history of hypertension, hyperlipidemia, BPH, Parkinson's disease and Brandt body dementia. He presented to the emergency department on 04/15/23 with a chief complaint of abdominal pain/discomfort, decreased appetite, lethargy and generalized weakness progressively worsening over the past 2 months. Patient has been worked up outpatient by PCP and tumbling machine operator secondary to these reports. Workup for liver cirrhosis during previous encounters revealed: Ceruloplasmin is normal, alpha-1 anti-trypsin levels and genotype are normal, SPEP does not have a mono clonal protein, ferritin levels are appropriate, iron levels are low and not high, chronic hepatitis panel is negative/nonreactive, BROOKS negative, anti-smooth muscle antibody was within normal limits. Echocardiogram completed 03/10/23 revealed normal ejection fraction revealing only mild pulmonary hypertension. Patient's reports patient has been started on Lasix and Aldactone and did have slight improvement in the swelling of his lower extremities but continues to have increased abdominal girth resulting in decreased appetite and worsening abdominal pain. Patient underwent full evaluation in the emergency department. CBC unremarkable with WBC count of 6.3, hemoglobin 13.7, and platelet count of 224. Coagulation profile normal findings. BMP revealing hyperkalemia with potassium of 2.8, hyponatremia with sodium 131, hypochloremia with chloride of 95, hypercarbia with bicarb of 31, and prerenal azotemia BUN of 25, creatinine 0.93, and GFR greater than 90. Lactic acid was normal findings at 1.0. Liver profile unremarkable. Total protein was 5.3 with albumin of 2.7. CT of the abdomen/pelvis showed large volume ascites with distended abdomen with subcutaneous edema and urinary bladder with mild diffuse thickening concerning for cystitis. Patient admitted under our services with consultation to inte rventional radiology for paracentesis. Consult placed to GI for further evaluation of ascites of unclear origin and to nephrology to rule out nephrotic syndrome. Abdominal ultrasound showed ascites without evidence of hepatic vein thrombosis showing normal flow direction of the portal vein. Patient underwent paracentesis on 04/17/23 resulting in successful removal of approximately 2 L of straw-colored fluid. Patient received 1 dose of albumin 50 ML status post completion of paracentesis. Ascitic fluid results reviewed showing slightly cloudy appearance otherwise showing no significant abnormalities upon review of laboratory report. Physical exam: Vital signs reviewed and stable. General: Nontoxic, no acute distress but is chronically ill-appearing. Derm: Skin pale, warm and dry. Head: Atraumatic, normocephalic and symmetric. Eyes: EOMs intact, no lid lag, and anicteric sclera Mouth: no lip lesions, mucus membranes moist Cardiovascular: regular rate and rhythm with normal S1S2, no murmur, positive posterior tibial pulses bilaterally, and cap refill < 2 seconds. Lungs: Respirations even, regular, and unlabored on room air. Lungs CTA bilaterally, no rhonchi, no rales, no wheezing, and no accessory muscle usage. Abdominal: Distended cirrhotic abdomen, diffuse tenderness to palpation, no guarding, no appreciable organomegaly Ext: ROM intact. No gross muscle atrophy, 2+ pitting edema bilateral lower extremities, no contractures Neuro: Speech clear, face symmetrical and CN II-XII grossly intact with no noted focal neuro deficits Psych: Alert and oriented to person, place, time, and situation. Appropriate and pleasant affect. Assessment and Plan of Care: Abdominal pain Ascites Acute cystitis Acute kidney injury with oliguria -Ascitic fluid Gram stain preliminary results showing no growth to date, we will follow up on final Gram stain results -Urine culture results positive for gram-negative bacilli, we will continue Rocephin 1 g every 24 hours pending final urine culture results and sensitivity report. -Curtain Stretcher following, reviewed documentation in chart. -Continue bladder management, monitor for post void residuals. Patient has a documented urinary output of 300 mL overnight. -Order placed for strict monitoring of intake and output. -Lisinopril held at this time secondary to acute kidney injury -Consult placed to GI for further evaluation of ascites of unclear origin. Hypoglycemia, isolated episode -Hypoglycemia believed to be secondary to decreased oral intake. No further epi sodes noted. -Continue hypoglycemic protocol with [id number] glucose checks to be obtained every 6 hours. -Continue protein supplements 3 times daily between meals and consult to dietitian. Data review: -Vital signs reviewed and stable. Blood pressure 91/55, heart rate 67, respiratory rate 18, and SpO2 of 90% on room air. -Morning labs reviewed. Renal function improving. Morning labs revealed BUN 30.5, creatinine 1.3, and GFR of 23.46. Liver profile remains unremarkable. -Ascitic fluid results reviewed showing slightly cloudy appearance otherwise showing no significant abnormalities upon review of laboratory report. -Urinalysis positive for protein with elevated total urine protein count of 32 and sodium less than 20. Imaging review: -No new imaging for review. CODE STATUS: Full code DVT prophylaxis: Heparin Discussed with: Patient, patient's , and RN Anticipated discharge date: Clinical course to determine Anticipated discharge place: Home versus correction facility Patient was seen independently by Nurse Pracitioner. This document was prepared using [email or web address] dictation software. Please allow for errors in adult education professional, while rare they do occur. I reviewed the documentation as provided by the SORIN above, who is the original author of this note. I agree with the documented assessment and plan, with the following changes: none Objective - Vital Signs Vital signs: Vital Signs Temp 98.2 F 04/19/23 01:38 Pulse 98 04/19/23 01:38 Resp 19 04/19/23 01:38 BP 84/51 04/19/23 01:38 Pulse Ox 95 04/19/23 01:38 FiO2 Intake & Output 04/18/23 04/19/23 04/19/23 18:59 06:59 18:59 Output Total 200 100 Balance -200 -100 Output: Urine 200 100 Other: Voiding Method Toilet External Catheter # Voids 1 - Labs CBC & Chem 7: 04/21/23 07:31 04/23/23 04:36 Labs: Abnormal Lab Results - Last 24 Hours (Table) 04/18/23 04/18/23 Range/Units 06:07 06:07 MCHC 31.6 L (32.0-37.0) d/dL RDW 14.9 H (11.5-14.5) % Lymphocytes # 0.66 L (0.90-5.00) X 10*3/uL Anion Gap 14.10 H (4.00-12.00) mmol/L BUN 31.9 H (9.0-27.0) mg/dL Creatinine 1.7 H (0.6-1.5) mg/dL Est GFR (CKD-EPI) 43 L (>=60) Glucose 64 L (70-110) mg/dL Microbiology - Last 24 Hours (Table) 04/17/23 14:46 Gram Stain - Preliminary Ascites Fluid Body Fluid Culture - Preliminary
[2023-04-19 21:38] LABS: Glucose,Whole Blood 128 mg/dL (70-110)
[2023-04-19 23:40] LABS: Glucose,Whole Blood 129 mg/dL (70-110)
[2023-04-20] MEDS: OCTREOTIDE 100 MCG/ML INJ SQ SCH ×4 (00:12→23:35)
[2023-04-20] MEDS: HEPARIN SODIUM,PORCINE/PF 5,000 UNIT/0.5 ML SYRINGE SQ SCH ×4 (00:12→23:35)
[2023-04-20 05:57] LABS: Glucose,Whole Blood 126 mg/dL (70-110)
[2023-04-20] MEDS: MIDODRINE 5 MG TAB PO SCH ×3 (07:00→17:36)
[2023-04-20] MEDS: PANTOPRAZOLE 40 MG TABLET PO SCH (07:00)
--- NOTE | 2023-04-20 07:11 | P.CONS ---
History of Present Illness - Reason for Consult Consult date: 04/19/23 Ascites Requesting physician: Dario Bowers - Chief Complaint Abdominal distention - History of Present Illness This a pleasant 72-year-old male who was admitted to the hospital with complaints of abdominal distention and discomfort. He has a past medical history including Brandt body dementia, hyperlipidemia, hypertension, BPH and recent diagnosis of ascites. Patient was recently seen with gastroenterology, follows with Jose A Rizzo NP. The patient's is at the bedside and states that they have done some blood work in the office in February. He was supposed to have a follow-up last Monday but they had to cancel. Apparently patient had been having some abdominal distention, decreased appetite and weight loss for about the last 6 months duration. He has had no prior history of liver disease, no previous paracentesis. On admission patient was noted to be distended. He underwent CT abdomen and pelvis with findings of large degree of ascites. Subcutaneous edema also noted. Liver reported small, spleen normal, pancreas normal, gallbladder normal. He underwent abdominal ultrasound as well reporting normal flow direction of portal vein, ascites, cholelithiasis. LFTs have been normal. Patient's at bedside states he has no previous history of liver disease, no family history of liver disease, denies alcohol use or obesity in the past. She states that he has lost at least 30-40 pounds within the last 6 months. Very difficult to get him to eat. Monday the patient underwent paracentesis with 2 L of fluid removed. Cytology was not collected as well as fluid albumin. These will be added. Patient and his deny any history of heart disease. On most recent labs WBC 9.0 hemoglobin 13.6 hematocrit 43 platelet count 183,018 are 1.1 sodium 141 potassium 3.6 BUN 31.9 creatinine 1.7 total bilirubin 0.4 AST 29 ALT 19 alkaline phosphatase 80 Review of Systems REVIEW OF SYSTEMS: CARDIOPULMONARY: No chest pain or shortness of breath. Gastrointestinal: Abdominal distention with discomfort. No nausea or vomiting. No hematemesis, coffee-ground emesis. No rectal bleeding, or melena. Decreased appetite and weight loss. GENITOURINARY: No dysuria or hematuria. MUSCULOSKELETAL: Reports normal range of motion., Joint pain. SKIN: No rashes. No jaundice. ENDOCRINE: No chills, fevers. Reports 30-40 pound weight loss in the last 6 months. No polydipsia or polyuria. PSYCHIATRIC: Unremarkable. NEUROLOGY: No change in mental status. Denies dizziness, headache. ENT: Vision unremarkable. CONSTITUTIONAL: Reports 30-40 pound weight loss in the last 6 months. No fever, chills, night sweats. Past Medical History Past Medical History: Dementia, Hyperlipidemia, Hypertension, Prostate Disorder Additional Past Medical History / Comment(s): enlarged prostate, lewiebody dementia, parkinsons History of Any Multi-Drug Resistant Organisms: None Reported Past Surgical History: Hernia Repair Past Psychological History: No Psychological Hx Reported Smoking Status: Never smoker Past Alcohol Use History: None Reported Past Drug Use History: None Reported Medications and Allergies Home Medications Medication Instructions Recorded Confirmed Type Atorvastatin [Lipitor] 20 mg PO DAILY 02/15/19 04/16/23 History Primidone [Mysoline] 50 mg PO DAILY 02/15/19 04/16/23 History Tamsulosin [Flomax] 0.4 mg PO DAILY 02/15/19 04/16/23 History Terazosin [Hytrin] 2 mg PO DAILY 02/15/19 04/16/23 History Furosemide [Lasix] 40 mg PO DAILY 04/16/23 04/16/23 History Spironolactone [Aldactone] 100 mg PO DAILY 04/16/23 04/16/23 History Allergies Allergy/AdvReac Type Severity Reaction Status Date / Time No Known Allergies Allergy Verified 04/16/23 10:28 Physical Exam Vitals: Vital Signs Temp Pulse Resp BP Pulse Ox 04/19/23 01:38 98.2 F 98 19 84/51 95 04/18/23 13:45 97.5 F L 75 17 98/65 97 Intake and Output 04/18/23 04/19/23 04/19/23 22:59 06:59 14:59 Output Total 100 Balance -100 Output: Urine 100 Other: Voiding Method External Catheter General appearance: The patient is alert, oriented, appears in no acute distress. HET: Head is normocephalic and atraumatic. Conjunctiva pink. Sclera anicteric. Neck: Supple without lymphadenopathy. Trachea midline. Heart: S1 S2. Regular rate and rhythm. Lungs: Clear to auscultation. Abdomen: Soft, nontender, mildly distended. No guarding or rigidity. Skin: No rashes. No jaundice. Extremities: Normal skin color and turgor. Lower extremity edema. Neurological: No focal deficits. Alert and oriented x3. Results CBC & Chem 7: 04/19/23 08:42 04/19/23 08:42 Labs: Abnormal Lab Results - Last 24 Hours (Table) 04/18/23 04/18/23 Range/Units 06:07 06:07 MCHC 31.6 L (32.0-37.0) d/dL RDW 14.9 H (11.5-14.5) % Lymphocytes # 0.66 L (0.90-5.00) X 10*3/uL Anion Gap 14.10 H (4.00-12.00) mmol/L BUN 31.9 H (9.0-27.0) mg/dL Creatinine 1.7 H (0.6-1.5) mg/dL Est GFR (CKD-EPI) 43 L (>=60) Glucose 64 L (70-110) mg/dL Microbiology - Last 24 Hours (Table) 04/17/23 14:46 Gram Stain - Preliminary Ascites Fluid Body Fluid Culture - Preliminary Assessment and Plan (1) Ascites Narrative/Plan: This 72-year-old male who began having lower extremity edema and abdominal distention over the last several months along with decreased appetite and weight loss. Patient was referred to gastroenterology and had been following with Jose A Huntley NP and underwent liver serologies. Overall negative serology, hepatitis B and C antibodies negative, patient's alpha 1 antitrypsin was 221 with a normal phenotype. No prior history of liver disease, denies any alcohol abuse in the past or currently, no family history of liver disease, and denies any obesity. Liver ultrasounds and CT abdomen and pelvis report overall normal liver. He was noted to have moderate amount of ascites on admission and underwent paracentesis with 2 L of fluid removed. Awaiting final fluid studies. The patient was on Lasix 40 mg daily and spironolactone 100 mg daily. Unclear etiology of ascites at this time, possible etiology includes underlying cirrhosis of the liver possible from fatty liver. Current Visit: Yes Status: Acute Code(s): R18.8 - OTHER ASCITES SNOMED Code(s): 449017152 (2) Hypokalemia Narrative/Plan: Resolved Current Visit: Yes Status: Acute Code(s): E87.6 - HYPOKALEMIA SNOMED Co de(s): 52157450 Plan: 1. Continue symptomatic and supportive care 2. Fluid cytology and albumin ordered 3. Await recommendations from nephrology for diuretics 4. Low-sodium diet 5. Further recommendations forthcoming Thank you for this consultation, we will continue to follow. Dr. Magalys Hurt I agree with the dictator's note, documented as a scribe by April Box.
[2023-04-20] MEDS: TAMSULOSIN 0.4 MG CAP.ER.24H PO SCH (08:29)
[2023-04-20] MEDS: ATORVASTATIN 20 MG TAB PO SCH (08:29)
[2023-04-20] MEDS: SODIUM CHLORIDE 0.9% 1,000 ML IV SCH ×2 (09:47→23:37)
[2023-04-20 11:29] LABS: Glucose,Whole Blood 144 mg/dL (70-110)
--- NOTE | 2023-04-20 12:08 | P.PN ---
Subjective Patient is seen for follow-up for acute kidney injury, possible hepatorenal syndrome. Patient was also significantly hypotensive with some degree of ATN. Started on midodrine and Sandostatin. Status post IV albumin eat as well yesterday. Not on IV fluids. Renal function has improved, creatinine 1.3 from yesterday. Urine output has increased. Post void residual residual documented at 883. I'm not sure this is accurate as it could be ascitic fluid. Objective - Vital Signs Vital signs: Vital Signs Temp 98.0 F 04/20/23 08:05 Pulse 66 04/20/23 10:35 Resp 18 04/20/23 08:05 BP 100/66 04/20/23 08:05 Pulse Ox 95 04/20/23 08:05 FiO2 Intake & Output 04/19/23 04/20/23 04/20/23 18:59 06:59 18:59 Output Total 883 Balance -883 Output: Post Void Residual 883 Other: Voiding Method External Catheter External Catheter External Catheter - Exam patient is awake, comfortable, week not in any acute distress Examination of the heart S1 and S2 Examination of the lungs bilateral breath sounds are heard decreased breath sounds at the bases [place] abdomen is soft mildly distended, nontender Examination of lower extremities shows trace edema bilaterally. COMMUTER TRAIN OPERATOR exam grossly intact - Labs CBC & Chem 7: 04/19/23 08:42 04/19/23 08:42 Labs: Abnormal Lab Results - Last 24 Hours (Table) 04/19/23 04/19/23 04/19/23 Range/Units 08:42 08:42 12:05 MCHC 31.4 L (32.0-37.0) d/dL RDW 14.7 H (11.5-14.5) % Potassium 3.3 L (3.5-5.5) mmol/L BUN 30.5 H (9.0-27.0) mg/dL Est GFR (CKD-EPI) 59 L (>=60) BUN/Creatinine Ratio 23.46 H (12.00-20.00) Ratio POC Glucose (mg/dL) 115 H (70-110) mg/dL Calcium 8.3 L (8.7-10.3) mg/dL Total Protein 4.6 L (6.2-8.2) d/dL Albumin 2.6 L (3.8-4.9) d/dL Albumin/Globulin Ratio 1.30 L (1.60-3.17) Ratio 04/19/23 04/19/23 04/19/23 Range/Units 17:26 21:36 23:37 MCHC (32.0-37.0) d/dL RDW (11.5-14.5) % Potassium (3.5-5.5) mmol/L BUN (9.0-27.0) mg/dL Est GFR (CKD-EPI) (>=60) BUN/Creatinine Ratio (12.00-20.00) Ratio POC Glucose (mg/dL) 112 H 128 H 129 H (70-110) mg/dL Calcium (8.7-10.3) mg/dL Total Protein (6.2-8.2) d/dL Albumin (3.8-4.9) d/dL Albumin/Globulin Ratio (1.60-3.17) Ratio 04/20/23 04/20/23 Range/Units 05:55 11:27 MCHC (32.0-37.0) d/dL RDW (11.5-14.5) % Potassium (3.5-5.5) mmol/L BUN (9.0-27.0) mg/dL Est GFR (CKD-EPI) (>=60) BUN/Creatinine Ratio (12.00-20.00) Ratio POC Glucose (mg/dL) 126 H 144 H (70-110) mg/dL Calcium (8.7-10.3) mg/dL Total Protein (6.2-8.2) d/dL Albumin (3.8-4.9) d/dL Albumin/Globulin Ratio (1.60-3.17) Ratio Microbiology - Last 24 Hours (Table) 04/17/23 14:46 Gram Stain - Preliminary Ascites Fluid Body Fluid Culture - Preliminary 04/17/23 17:21 Urine Culture - Preliminary Urine,Catheterized Gram Neg Bacilli Assessment and Plan Assessment: 1. Acute kidney injury, most likely hepatorenal syndrome with possibility of hemodynamic ATN with low blood pressure. Started on midodrine and Sandostatin. Status post IV albumin. 2. Chronic liver disease, nonalcoholic, recently diagnosed with portal hypertension and ascites status post paracentesis on 04/17/2023 with 2 L of fluid 3. UTI with urine culture growing gram-negative bacilli 4. Hypokalemia status post replacement Plan: continue with antibiotics Continue midodrine and Sandostatin Repeat bladder scan although it may be the ascitic fluid
[2023-04-20 12:25] LABS: HCT 43.2 % (39.0-53.0); HGB 14.3 gm/dL (13.0-17.5); MCH 31.1 pg (25.0-35.0); MCHC 33.1 g/dL (31.0-37.0); Mean Platelet Volume 7.3; Platelet Count 216 k/uL (150-450); RDW 13.7 % (11.5-15.5); WBC 6.5 k/uL (3.8-10.6)
[2023-04-20 12:39] LABS: African American GFR (CKD) 76 (>60 ml/min/1.73 sqM); Anion Gap 8 mmol/L; Blood Urea Nitrogen 30 mg/dL (9-20); Calcium 8.1 mg/dL (8.4-10.2); Carbon Dioxide 28 mmol/L (22-30); Chloride 97 mmol/L (98-107); Glucose 196 mg/dL (74-99); Magnesium 2.2 mg/dL (1.6-2.3); Non-African American GFR(CKD) 65 (>60 ml/min/1.73 sqM); Potassium 3.4 mmol/L (3.5-5.1); Sodium 133 mmol/L (137-145)
[2023-04-20] MEDS ORDERED: POTASSIUM CHLORIDE ER 20 MEQ TAB.ER PO STA (14:20)
--- NOTE | 2023-04-20 14:37 | P.PN ---
Subjective Progress Note Date: 04/20/23 Hospital course: Patient is a very pleasant 72-year-old male with a past medical history of hypertension, hyperlipidemia, BPH, Parkinson's disease and Brandt body dementia. He presented to the emergency department on 04/15/23 with a chief complaint of abdominal pain/discomfort, decreased appetite, lethargy and generalized weakness progressively worsening over the past 2 months. Patient has been worked up outpatient by PCP and director print secondary to these reports. Workup for liver cirrhosis during previous encounters revealed: Ceruloplasmin is normal, alpha-1 anti-trypsin levels and genotype are normal, SPEP does not have a mono clonal protein, ferritin levels are appropriate, iron levels are low and not high, chronic hepatitis panel is negative/nonreactive, BROOKS negative, anti-smooth muscle antibody was within normal limits. Echocardiogram completed 03/10/23 revealed normal ejection fraction revealing only mild pulmonary hypertension. Patient's reports patient has been started on Lasix and Aldactone and did have slight improvement in the swelling of his lower extremities but continues to have increased abdominal girth resulting in decreased appetite and worsening abdominal pain. Patient underwent full evaluation in the emergency department. CBC unremarkable with WBC count of 6.3, hemoglobin 13.7, and platelet count of 224. Coagulation profile normal findings. BMP revealing hyperkalemia with potassium of 2.8, hyponatremia with sodium 131, hypochloremia with chloride of 95, hypercarbia with bicarb of 31, and prerenal azotemia BUN of 25, creatinine 0.93, and GFR greater than 90. Lactic acid was normal findings at 1.0. Liver profile unremarkable. Total protein was 5.3 with albumin of 2.7. CT of the abdomen/pelvis showed large volume ascites with distended abdomen with subcutaneous edema and urinary bladder with mild diffuse thickening concerning for cystitis. Patient admitted under our services with consultation to inte rventional radiology for paracentesis. Consult placed to GI for further evaluation of ascites of unclear origin and to nephrology to rule out nephrotic syndrome. Abdominal ultrasound showed ascites without evidence of hepatic vein thrombosis showing normal flow direction of the portal vein. Patient underwent paracentesis on 04/17/23 resulting in successful removal of approximately 2 L of straw-colored fluid. Patient received 1 dose of albumin 50 ML status post completion of paracentesis. Ascitic fluid results reviewed showing slightly cloudy appearance otherwise showing no significant abnormalities upon review of laboratory report. Awaiting cytology report from ascitic fluid. Physical exam: Patient seen and fully evaluated at bedside this morning. He appeared to be resting comfortably. Patient's at bedside reports that it has been a long night, but did state her slept better than he has been. Patient currently reports diffuse abdominal discomfort and overall just not feeling well. Vital signs reviewed and stable. Blood pressure 100/66, heart rate 66, respiratory rate 18, SpO2 95% on room air and temperature 98.0F. General: Nontoxic, no acute distress but is chronically ill-appearing. Derm: Skin pale, warm and dry. Head: Atraumatic, normocephalic and symmetric. Eyes: EOMs intact, no lid lag, and anicteric sclera Mouth: no lip lesions, mucus membranes moist Cardiovascular: regular rate and rhythm with normal S1S2, no murmur, positive posterior tibial pulses bilaterally, and cap refill < 2 seconds. Lungs: Respirations even, regular, and unlabored on room air. Lungs CTA bilaterally, no rhonchi, no rales, no wheezing, and no accessory muscle usage. Abdominal: Distended cirrhotic abdomen, diffuse tenderness to palpation, no guarding, no appreciable organomegaly Ext: ROM intact. No gross muscle atrophy, 2+ pitting edema bilateral lower extremities, no contractures Neuro: Speech clear, face symmetrical and CN II-XII grossly intact with no noted focal neuro deficits Psych: Alert and oriented to person, place, time, and situation. Appropriate and pleasant affect. Assessment and Plan of Care: Abdominal pain Ascites Hyponatremia secondary to fluid volume overload resulting from ascites Acute cystitis Acute kidney injury with oliguria -Ascitic fluid Gram stain preliminary results showing no growth to date, we will follow up on final Gram stain results -Urine culture results positive for gram-negative bacilli, we will continue Rocephin 1 g every 24 hours pending final urine culture results and sensitivity report. -Balance Wheel Facer following and discussed plan of care. She started patient on midodrine 5 mg 3 times daily and Sandostatin 100 g subcu every 8 hours and recommending continued monitoring with repeat morning labs. -Continue bladder management, monitor for post void residuals. Output not documented -Order placed for strict monitoring of intake and output. -Lisinopril held at this time secondary to acute kidney injury -Gastroenterology following and discussed plan of care with GI GRAPHIC DESIGN PROFESSOR stating they are awaiting fluid cytology and albumin results and to give further recommendations based upon these findings. Hypokalemia -Potassium 3.4. Orders placed for K Dur 40 mEq 1 dose. -We will follow-up with repeat potassium results, ordered for morning BMP and we'll continue to replace abnormal electrolyte values as indicated. Hypoglycemia, isolated episode -Hypoglycemia believed to be secondary to decreased oral intake. No further episodes noted. -Continue hypoglycemic protocol with [id number] glucose checks to be obtained every 6 hours. -Continue protein supplements 3 times daily between meals and consult to dietitian. Data review: -Vital signs reviewed and stable. Blood pressure 100/66, heart rate 66, respiratory rate 18, SpO2 95% on room air and temperature 98.0F. -Morning labs reviewed. Renal function improving with BMP showing BUN of 30, creatinine 1.3, GFR of 65. Sodium was slightly low at 133 and potassium of 3.4. -Urine culture positive for gram-negative bacilli, awaiting a final culture and sensitivity report. Imaging review: -No new imaging for review. CODE STATUS: Full code DVT prophylaxis: Heparin Anticipated discharge date: Clinical course to determine Anticipated discharge place: Home versus correction facility Patient was seen independently by Nurse Pracitioner. This document was prepared using [employer] dictation software. Please allow for errors in automotive sales executive, while rare they do occur. I reviewed the documentation as provided by the SORIN above, who is the original author of this note. I agree with the documented assessment and plan, with the following changes: none Objective - Vital Signs Vital signs: Vital Signs Temp 98.0 F 04/20/23 08:05 Pulse 77 04/20/23 12:40 Resp 18 04/20/23 08:05 BP 99/72 04/20/23 12:40 Pulse Ox 95 04/20/23 08:05 FiO2 Intake & Output 04/19/23 04/20/23 04/20/23 18:59 06:59 18:59 Output Total 883 Balance -883 Weight 77.111 kg Output: Post Void Residual 883 Other: Voiding Method External Catheter External Catheter External Catheter - Labs CBC & Chem 7: 04/21/23 07:31 04/23/23 04:36 Labs: Abnormal Lab Results - Last 24 Hours (Table) 04/19/23 04/19/23 04/19/23 Range/Units 08:42 08:42 17:26 MCHC 31.4 L (32.0-37.0) d/dL RDW 14.7 H (11.5-14.5) % Sodium (137-145) mmol/L Potassium 3.3 L (3.5-5.5) mmol/L Chloride (98-107) mmol/L BUN 30.5 H (9.0-27.0) mg/dL Est GFR (CKD-EPI) 59 L (>=60) BUN/Creatinine Ratio 23.46 H (12.00-20.00) Ratio Glucose (74-99) mg/dL POC Glucose (mg/dL) 112 H (70-110) mg/dL Calcium 8.3 L (8.7-10.3) mg/dL Total Protein 4.6 L (6.2-8.2) d/dL Albumin 2.6 L (3.8-4.9) d/dL Albumin/Globulin Ratio 1.30 L (1.60-3.17) Ratio 04/19/23 04/19/23 04/20/23 Range/Units 21:36 23:37 05:55 MCHC (32.0-37.0) d/dL RDW (11.5-14.5) % Sodium (137-145) mmol/L Potassium (3.5-5.5) mmol/L Chloride (98-107) mmol/L BUN (9.0-27.0) mg/dL Est GFR (CKD-EPI) (>=60) BUN/Creatinine Ratio (12.00-20.00) Ratio Glucose (74-99) mg/dL POC Glucose (mg/dL) 128 H 129 H 126 H (70-110) mg/dL Calcium (8.7-10.3) mg/dL Total Protein (6.2-8.2) d/dL Albumin (3.8-4.9) d/dL Albumin/Globulin Ratio (1.60-3.17) Ratio 04/20/23 04/20/23 Range/Units 11:27 11:56 MCHC (32.0-37.0) d/dL RDW (11.5-14.5) % Sodium 133 L (137-145) mmol/L Potassium 3.4 L (3.5-5.5) mmol/L Chloride 97 L (98-107) mmol/L BUN 30 H (9.0-27.0) mg/dL Est GFR (CKD-EPI) (>=60) BUN/Creatinine Ratio (12.00-20.00) Ratio Glucose 196 H (74-99) mg/dL POC Glucose (mg/dL) 144 H (70-110) mg/dL Calcium 8.1 L (8.7-10.3) mg/dL Total Protein (6.2-8.2) d/dL Albumin (3.8-4.9) d/dL Albumin/Globulin Ratio (1.60-3.17) Ratio Microbiology - Last 24 Hours (Table) 04/17/23 14:46 Gram Stain - Preliminary Ascites Fluid Body Fluid Culture - Preliminary 04/17/23 17:21 Urine Culture - Preliminary Urine,Catheterized Gram Neg Bacilli
[2023-04-20] MEDS ORDERED: POTASSIUM BICARBONATE/CIT AC 20 MEQ TABLET.EFF PO STA (14:43)
--- NOTE | 2023-04-20 16:34 | P.PN ---
Subjective Progress Note Date: 04/20/23 Principal diagnosis: Ascites This a pleasant 72-year-old male who was admitted to the hospital with complaints of abdominal distention and discomfort. He has a past medical histo ry including Brandt body dementia, hyperlipidemia, hypertension, BPH and recent diagnosis of ascites. Patient was recently seen with gastroenterology, follows with Jose A Rizzo NP. The patient's is at the bedside and states that they have done some blood work in the office in February. He was supposed to have a follow-up last Monday but they had to cancel. Apparently patient had been having some abdominal distention, decreased appetite and weight loss for about the last 6 months duration. He has had no prior history of liver disease, no previous paracentesis. On admission patient was noted to be distended. He underwent CT abdomen and pelvis with findings of large degree of ascites. Hernandez bcutaneous edema also noted. Liver reported small, spleen normal, pancreas normal, gallbladder normal. He underwent abdominal ultrasound as well reporting normal flow direction of portal vein, ascites, cholelithiasis. LFTs have been normal. Patient's at bedside states he has no previous history of liver disease, no family history of liver disease, denies alcohol use or obesity in the past. She states that he has lost at least 30-40 pounds within the last 6 months. Very difficult to get him to eat. Monday the patient underwent paracentesis with 2 L of fluid removed. Cytology was not collected as well as fluid albumin. These will be added. Patient and his deny any history of heart disease. On most recent labs WBC 9.0 hemoglobin 13.6 hematocrit 43 platelet count 183,018 are 1.1 sodium 141 potassium 3.6 BUN 31.9 creatinine 1.7 total bilirubin 0.4 AST 29 ALT 19 alkaline phosphatase 80 04/20/2023 Patient seen and examined today as a follow-up he is sitting up in the recliner. His and daughter at the bedside. Daughter states that she feels that he has lost 40-50 pounds over the last 6 months duration. Patient denies any abdominal pain, nausea or vomiting. States he just has no appetite. Fluid studies are still currently pending including cytology. Nephrology following patient for acute kidney injury, possible hepatorenal syndrome. Patient was started on midodrine and Sandostatin as well as IV albumin. Objective - Vital Signs Vital signs: Vital Signs Temp 98.8 F 04/20/23 14:00 Pulse 80 04/20/23 14:00 Resp 17 04/20/23 14:00 BP 106/74 04/20/23 14:00 Pulse Ox 94 L 04/20/23 14:00 FiO2 Intake & Output 04/19/23 04/20/23 04/20/23 18:59 06:59 18:59 Output Total 883 Balance -883 Weight 77.111 kg Output: Post Void Residual 883 Other: Voiding Method External Catheter External Catheter External Catheter - Exam General appearance: The patient is alert, oriented, appears in no acute distress. HET: Head is normocephalic and atraumatic. Conjunctiva pink. Sclera anicteric. Neck: Supple without lymphadenopathy. Abdomen: Soft, nontender, mild distention. No guarding or rigidity. Extremities: Normal skin color and turgor. Lower extremity edema. Skin: No rashes, no jaundice Neurological: No focal deficits. Alert and oriented. - Labs CBC & Chem 7: 04/20/23 11:56 04/20/23 11:56 Labs: Abnormal Lab Results - Last 24 Hours (Table) 04/19/23 04/19/23 04/19/23 Range/Units 17:26 21:36 23:37 Sodium (137-145) mmol/L Potassium (3.5-5.1) mmol/L Chloride (98-107) mmol/L BUN (9-20) mg/dL Glucose (74-99) mg/dL POC Glucose (mg/dL) 112 H 128 H 129 H (70-110) mg/dL Calcium (8.4-10.2) mg/dL 04/20/23 04/20/23 04/20/23 Range/Units 05:55 11:27 11:56 Sodium 133 L (137-145) mmol/L Potassium 3.4 L (3.5-5.1) mmol/L Chloride 97 L (98-107) mmol/L BUN 30 H (9-20) mg/dL Glucose 196 H (74-99) mg/dL POC Glucose (mg/dL) 126 H 144 H (70-110) mg/dL Calcium 8.1 L (8.4-10.2) mg/dL Microbiology - Last 24 Hours (Table) 04/17/23 17:21 Urine Culture - Final Urine,Catheterized Escherichia coli 04/17/23 14:46 Gram Stain - Preliminary Ascites Fluid Body Fluid Culture - Preliminary Assessment and Plan (1) Ascites Narrative/Plan: This 72-year-old male who began having lower extremity edema and abdominal distention over the last several months along with decreased appetite and weight loss. Patient was referred to gastroenterology and had been following with Jose A Huntley NP and underwent liver serologies. Overall negative serology, hepatitis B and C antibodies negative, patient's alpha 1 antitrypsin was 221 with a normal phenotype. No prior history of liver disease, denies any alcohol abuse in the past or currently, no family history of liver disease, and denies any obesity. Liver ultrasounds and CT abdomen and pelvis report overall normal liver. He was noted to have moderate amount of ascites on admission and underwent paracentesis with 2 L of fluid removed. Awaiting final fluid studies. The patient was on Lasix 40 mg daily and spironolactone 100 mg daily. Unclear etiology of ascites at this time, possible etiology includes underlying cirrhosis of the liver possible from fatty liver, however need to consider possible cardiac source. Will await final fluid studies including cytology. Th is was discussed with the family who is at the bedside. Current Visit: Yes Status: Acute Code(s): R18.8 - OTHER ASCITES SNOMED Code(s): 872842372 (2) Hypokalemia Narrative/Plan: Resolved Current Visit: Yes Status: Acute Code(s): E87.6 - HYPOKALEMIA SNOMED Code(s): 54131228 Plan: 1. Continue symptomatic and supportive care 2. Fluid cytology and albumin ordered, currently pending 3. Await recommendations from nephrology for diuretics 4. Low-sodium diet 5. Continue with recommendations from nephrology 6. Patient to follow-up with gastroenterology on discharge Thank you for this consultation, we will continue to follow. Dr. Magalys Hurt I agree with the dictator's note, documented as a scribe by April Box.
[2023-04-20] MEDS: droNABinol 2.5 MG CAP PO SCH (17:37)
[2023-04-20 18:42] LABS: Glucose,Whole Blood 126 mg/dL (70-110)
[2023-04-21 00:10] LABS: Glucose,Whole Blood 112 mg/dL (70-110)
[2023-04-21 06:06] LABS: Glucose,Whole Blood 117 mg/dL (70-110)
[2023-04-21] MEDS: PANTOPRAZOLE 40 MG TABLET PO SCH (06:12)
[2023-04-21] MEDS: droNABinol 2.5 MG CAP PO SCH ×2 (06:12→18:02)
[2023-04-21] MEDS: MIDODRINE 5 MG TAB PO SCH ×4 (06:12→18:02)
[2023-04-21] MEDS: TAMSULOSIN 0.4 MG CAP.ER.24H PO SCH (08:35)
[2023-04-21] MEDS: OCTREOTIDE 100 MCG/ML INJ SQ SCH ×2 (08:35→18:02)
[2023-04-21] MEDS: ATORVASTATIN 20 MG TAB PO SCH (08:35)
[2023-04-21] MEDS: HEPARIN SODIUM,PORCINE/PF 5,000 UNIT/0.5 ML SYRINGE SQ SCH ×2 (08:37→18:02)
--- NOTE | 2023-04-21 10:32 | P.PN ---
Subjective Progress Note Date: 04/21/23 Hospital course: Patient is a very pleasant 72-year-old male with a past medical history of hypertension, hyperlipidemia, BPH, Parkinson's disease and Brandt body dementia. He presented to the emergency department on 04/15/23 with a chief complaint of abdominal pain/discomfort, decreased appetite, lethargy and generalized weakness progressively worsening over the past 2 months. Patient has been worked up outpatient by PCP and curb setter secondary to these reports. Workup for liver cirrhosis during previous encounters revealed: Ceruloplasmin is normal, alpha-1 anti-trypsin levels and genotype are normal, SPEP does not have a mono clonal protein, ferritin levels are appropriate, iron levels are low and not high, chronic hepatitis panel is negative/nonreactive, BROOKS negative, anti-smooth muscle antibody was within normal limits. Echocardiogram completed 03/10/23 revealed normal ejection fraction revealing only mild pulmonary hypertension. Patient's reports patient has been started on Lasix and Aldactone and did have slight improvement in the swelling of his lower extremities but continues to have increased abdominal girth resulting in decreased appetite and worsening abdominal pain. Patient underwent full evaluation in the emergency department. CBC unremarkable with WBC count of 6.3, hemoglobin 13.7, and platelet count of 224. Coagulation profile normal findings. BMP revealing hyperkalemia with potassium of 2.8, hyponatremia with sodium 131, hypochloremia with chloride of 95, hypercarbia with bicarb of 31, and prerenal azotemia BUN of 25, creatinine 0.93, and GFR greater than 90. Lactic acid was normal findings at 1.0. Liver profile unremarkable. Total protein was 5.3 with albumin of 2.7. CT of the abdomen/pelvis showed large volume ascites with distended abdomen with subcutaneous edema and urinary bladder with mild diffuse thickening concerning for cystitis. Patient admitted under our services with consultation to inte rventional radiology for paracentesis. Consult placed to GI for further evaluation of ascites of unclear origin and to nephrology to rule out nephrotic syndrome. Abdominal ultrasound showed ascites without evidence of hepatic vein thrombosis showing normal flow direction of the portal vein. Patient underwent paracentesis on 04/17/23 resulting in successful removal of approximately 2 L of straw-colored fluid. Patient received 1 dose of albumin 50 ML status post completion of paracentesis. Ascitic fluid results reviewed showing slightly cloudy appearance otherwise showing no significant abnormalities upon review of laboratory report. Awaiting cytology report from ascitic fluid. Physical exam: Patient seen and fully evaluated at bedside this morning. He appeared to be resting comfortably. Awake and remains alert and oriented at this time. He d enies having any pain or complaints. Abdomen feels slightly less distended patient continues to have 2+ pitting bilateral lower extremity edema. Patient reports continued loss of appetite however RN and patient's at bedside reports patient has been eating a little bit more than he was. Vital signs reviewed and stable. General: Nontoxic, no acute distress but is chronically ill-appearing. Derm: Skin pale, warm and dry. Head: Atraumatic, normocephalic and symmetric. Eyes: EOMs intact, no lid lag, and anicteric sclera Mouth: no lip lesions, mucus membranes moist Cardiovascular: regular rate and rhythm with normal S1S2, no murmur, positive posterior tibial pulses bilaterally, and cap refill < 2 seconds. Lungs: Respirations even, regular, and unlabored on room air. Lungs CTA bila terally, no rhonchi, no rales, no wheezing, and no accessory muscle usage. Abdominal: Distended cirrhotic abdomen, diffuse tenderness to palpation, no guarding, no appreciable organomegaly Ext: ROM intact. No gross muscle atrophy, 2+ pitting edema bilateral lower extremities, no contractures Neuro: Speech clear, face symmetrical and CN II-XII grossly intact with no noted focal neuro deficits Psych: Alert and oriented to person, place, time, and situation. Appropriate and pleasant affect. Assessment and Plan of Care: Abdominal pain Ascites Hyponatremia secondary to fluid volume overload resulting from ascites E. coli UTI Acute kidney injury with oliguria -Ascitic fluid Gram stain final results showing no growth for 4 days. -Ascitic fluid cytology report pending. -Urine culture results positive for E. coli. Patient is completing dose 5 out of 5 of antibiotics today. -Hospice Care Transitions Coordinator following and review documentation in chart. She is recommending continuation of midodrine 5 mg 3 times daily and Sandostatin 100 g subcu every 8 hours and recommending continued monitoring with repeat morning labs. -Gastroenterology following, discussed plan of care. They are recommending patient follow up outpatient with their office in 2 weeks after discharge. -Continue bladder management, monitor for post void residuals. Output not documented -Order placed for strict monitoring of intake and output. -Lisinopril held at this time secondary to acute kidney injury Hypokalemia, resolved -Morning labs reviewed, repeat potassium 3.6. Hypoglycemia, isolated episode -Hypoglycemia believed to be secondary to decreased oral intake. No further episodes noted. -Continue hypoglycemic protocol with [id number] glucose checks to be obtained every 6 hours. -Patient also started on Marinol 5 mg twice daily to assist with increasing appetite. -Continue protein supplements 3 times daily between meals and consult to dietitian. Data review: -Vital signs reviewed and stable. blood pressure 106/72, heart rate 64, SpO2 of 96% and temp 98.1F. -Morning labs reviewed. CBC, BMP, and magnesium were all unremarkable. -Final Urine culture positive for E. coli -Final fluid culture results showing no growth after 4 days. -Cytology report of ascitic fluid pending. Imaging review: -No new imaging for review. CODE STATUS: Full code DVT prophylaxis: Heparin Anticipated discharge date: Clinical course to determine Anticipated discharge place: Home versus [facility] facility Patient was seen independently by Nurse Pracitioner. This document was prepared using Epic[employer] dictation software. Please allow for errors in torch shearer, while rare they do occur. I reviewed the documentation as provided by the SORIN above, who is the original author of this note. I agree with the documented assessment and plan, with the following changes: none Objective - Vital Signs Vital signs: Vital Signs Temp 98.1 F 04/21/23 06:57 Pulse 64 04/21/23 06:57 Resp 18 04/21/23 06:57 BP 106/72 04/21/23 06:57 Pulse Ox 96 04/21/23 06:57 FiO2 Intake & Output 04/20/23 04/21/23 04/21/23 18:59 06:59 18:59 Output Total 350 Balance -350 Weight 77.111 kg Output: Urine 350 Other: Voiding Method External Catheter External Catheter - Labs CBC & Chem 7: 04/21/23 07:31 04/23/23 04:36 Labs: Abnormal Lab Results - Last 24 Hours (Table) 04/20/23 04/20/23 04/20/23 Range/Units 11:27 11:56 18:41 Sodium 133 L (137-145) mmol/L Potassium 3.4 L (3.5-5.1) mmol/L Chloride 97 L (98-107) mmol/L BUN 30 H (9-20) mg/dL Glucose 196 H (74-99) mg/dL POC Glucose (mg/dL) 144 H 126 H (70-110) mg/dL Calcium 8.1 L (8.4-10.2) mg/dL 04/21/23 04/21/23 Range/Units 00:08 06:03 Sodium (137-145) mmol/L Potassium (3.5-5.1) mmol/L Chloride (98-107) mmol/L BUN (9-20) mg/dL Glucose (74-99) mg/dL POC Glucose (mg/dL) 112 H 117 H (70-110) mg/dL Calcium (8.4-10.2) mg/dL Microbiology - Last 24 Hours (Table) 04/17/23 17:21 Urine Culture - Final Urine,Catheterized Escherichia coli
[2023-04-21 10:55] LABS: HGB 12.9 d/dL (12.0-15.0); MCH 29.8 pg (27.0-32.0); MCHC 32.3 d/dL (32.0-37.0); MCV 92.4 FL (80.0-97.0); Mean Platelet Volume 9.4 FL (9.5-12.2); NRBC Per 100 WBC 0 X 10*3/uL (0.00-0.01); Platelet Count 237 X 10*3/uL (140-440); RBC 4.33 X 10*6/uL (4.40-5.60); RDW 14.5 % (11.5-14.5); WBC 6.68 X 10*3/uL (4.50-10.00)
[2023-04-21 11:13] LABS: Glucose,Whole Blood 120 mg/dL (70-110)
[2023-04-21 11:20] LABS: BUN/Creat Ratio 20.75 Ratio (12.00-20.00); Blood Urea Nitrogen 24.9 mg/dL (9.0-27.0); Calcium 8.3 mg/dL (8.7-10.3); Carbon Dioxide 28.6 mmol/L (21.6-31.8); Chloride 100 mmol/L (96-109); Glucose 113 mg/dL (70-110); Magnesium 2.1 mg/dL (1.5-2.4); Potassium 3.6 mmol/L (3.5-5.5); Sodium 137 mmol/L (135-145)
--- NOTE | 2023-04-21 12:26 | P.PN ---
Subjective Progress Note Date: 04/21/23 Principal diagnosis: Ascites This a pleasant 72-year-old male who was admitted to the hospital with complaints of abdominal distention and discomfort. He has a past medical histo ry including Brandt body dementia, hyperlipidemia, hypertension, BPH and recent diagnosis of ascites. Patient was recently seen with gastroenterology, follows with Jose A Rizzo NP. The patient's is at the bedside and states that they have done some blood work in the office in February. He was supposed to have a follow-up last Monday but they had to cancel. Apparently patient had been having some abdominal distention, decreased appetite and weight loss for about the last 6 months duration. He has had no prior history of liver disease, no previous paracentesis. On admission patient was noted to be distended. He underwent CT abdomen and pelvis with findings of large degree of ascites. Hernandez bcutaneous edema also noted. Liver reported small, spleen normal, pancreas normal, gallbladder normal. He underwent abdominal ultrasound as well reporting normal flow direction of portal vein, ascites, cholelithiasis. LFTs have been normal. Patient's at bedside states he has no previous history of liver disease, no family history of liver disease, denies alcohol use or obesity in the past. She states that he has lost at least 30-40 pounds within the last 6 months. Very difficult to get him to eat. Monday the patient underwent paracentesis with 2 L of fluid removed. Cytology was not collected as well as fluid albumin. These will be added. Patient and his deny any history of heart disease. On most recent labs WBC 9.0 hemoglobin 13.6 hematocrit 43 platelet count 183,018 are 1.1 sodium 141 potassium 3.6 BUN 31.9 creatinine 1.7 total bilirubin 0.4 AST 29 ALT 19 alkaline phosphatase 80 04/20/2023 Patient seen and examined today as a follow-up he is sitting up in the recliner. His and daughter at the bedside. Daughter states that she feels that he has lost 40-50 pounds over the last 6 months duration. Patient denies any abdominal pain, nausea or vomiting. States he just has no appetite. Fluid studies are still currently pending including cytology. Nephrology following patient for acute kidney injury, possible hepatorenal syndrome. Patient was started on midodrine and Sandostatin as well as IV albumin. 04/21/2023 Patient seen and examined today as a follow-up. He is lying in bed. No acute changes through the night. is at his bedside. Fluid albumin and cytology still pending. He denies any abdominal pain, no nausea or vomiting. BUN 24.9 creatinine 1.2. Nephrology is following currently not on any diuretics. Objective - Vital Signs Vital signs: Vital Signs Temp 97.6 F 04/21/23 02:24 Pulse 59 L 04/21/23 02:24 Resp 18 04/21/23 02:24 BP 98/67 04/21/23 02:24 Pulse Ox 96 04/21/23 02:24 FiO2 Intake & Output 04/20/23 04/21/23 04/21/23 18:59 06:59 18:59 Output Total 350 Balance -350 Weight 77.111 kg Output: Urine 350 Other: Voiding Method External Catheter External Catheter - Exam General appearance: The patient is alert, oriented, appears in no acute distress . HET: Head is normocephalic and atraumatic. Conjunctiva pink. Sclera anicteric. Neck: Supple without lymphadenopathy. Abdomen: Soft, nontender, mild distention. No guarding or rigidity. Extremities: Normal skin color and turgor. Lower extremity edema. Skin: No rashes, no jaundice Neurological: No focal deficits. Alert and oriented. - Labs CBC & Chem 7: 04/21/23 07:31 04/21/23 07:31 Labs: Abnormal Lab Results - Last 24 Hours (Table) 04/20/23 04/20/23 04/20/23 Range/Units 11:27 11:56 18:41 Sodium 133 L (137-145) mmol/L Potassium 3.4 L (3.5-5.1) mmol/L Chloride 97 L (98-107) mmol/L BUN 30 H (9-20) mg/dL Glucose 196 H (74-99) mg/dL POC Glucose (mg/dL) 144 H 126 H (70-110) mg/dL Calcium 8.1 L (8.4-10.2) mg/dL 04/21/23 04/21/23 Range/Units 00:08 06:03 Sodium (137-145) mmol/L Potassium (3.5-5.1) mmol/L Chloride (98-107) mmol/L BUN (9-20) mg/dL Glucose (74-99) mg/dL POC Glucose (mg/dL) 112 H 117 H (70-110) mg/dL Calcium (8.4-10.2) mg/dL Microbiology - Last 24 Hours (Table) 04/17/23 17:21 Urine Culture - Final Urine,Catheterized Escherichia coli Assessment and Plan (1) Ascites Narrative/Plan: This 72-year-old male who began having lower extremity edema and abdominal distention over the last several months along with decreased appetite and weight loss. Patient was referred to gastroenterology and had been following with Jose A Huntley NP and underwent liver serologies. Overall negative serology, hepatitis B and C antibodies negative, patient's alpha 1 antitrypsin was 221 with a normal phenotype. No prior history of liver disease, denies any alcohol abuse in the past or currently, no family history of liver disease, and denies any obesity. Liver ultrasounds and CT abdomen and pelvis report overall normal liver. He was noted to have moderate amount of ascites on admission and underwent paracentesis with 2 L of fluid removed. Awaiting final fluid studies. The patient was on Lasix 40 mg daily and spironolactone 100 mg daily. Unclear etiology of ascites at this time, possible etiology includes underlying cirrhosis of the liver possible from fatty liver, however need to consider possible cardiac source. Fluid protein elevated, not usually associated with the liver. Will await final fluid studies including cytology. This was discussed with the family who is at the bedside. Current Visit: Yes Status: Acute Code(s): R18.8 - OTHER ASCITES SNOMED Code(s): 449964664 (2) Hypokalemia Narrative/Plan: Resolved Current Visit: Yes Status: Acute Code(s): E87.6 - HYPOKALEMIA SNOMED Code(s): 57471753 Plan: 1. Continue symptomatic and supportive care 2. Fluid cytology and albumin ordered, currently pending 3. Await recommendations from nephrology on resuming diuretics 4. Low-sodium diet 5. Continue with recommendations from nephrology 6. Patient to follow-up with gastroenterology on discharge Thank you for allowing us to participate in the care of the patient, the GI service will sign off, gastroenterology will not be available at the hospital this weekend and through next week. If further evaluation by gastroenterology is required the patient will need transfer as per the primary team's discretion. Dr. Magalys Hurt I agree with the dictator's note, documented as a scribe by April Box.
[2023-04-21 16:21] LABS: Glucose,Whole Blood 95 mg/dL (70-110)
[2023-04-21] MEDS: MORPHINE SULFATE 4 MG/ML SYRINGE IV PRN (18:03)
--- NOTE | 2023-04-21 19:21 | P.PN ---
Subjective Patient is seen for follow-up for acute kidney injury, possible hepatorenal syndrome. Patient was also significantly hypotensive with some degree of ATN. Started on midodrine and Sandostatin. Status post IV albumin eat as well . Not on IV fluids. Renal function has improved, creatinine 1.2 today. Urine output has increased. No significant complaints. Objective - Vital Signs Vital signs: Vital Signs Temp 97.6 F 04/21/23 14:00 Pulse 70 04/21/23 14:00 Resp 18 04/21/23 14:00 BP 109/76 04/21/23 14:00 Pulse Ox 95 04/21/23 14:00 FiO2 Intake & Output 04/21/23 04/21/23 04/22/23 06:59 18:59 06:59 Output Total 350 Balance -350 Weight 77.111 kg Output: Urine 350 Other: Voiding Method External Catheter External Catheter - Exam patient is awake, comfortable, not in any acute distress A and O x3 Sitting on the commode Examination of lower extremities shows trace edema bilaterally. ORTHOPEDIC DENTIST exam grossly intact - Labs CBC & Chem 7: 04/21/23 07:31 04/21/23 07:31 Labs: Abnormal Lab Results - Last 24 Hours (Table) 04/21/23 04/21/23 04/21/23 Range/Units 00:08 06:03 07:31 RBC 4.33 L (4.40-5.60) X 10*6/uL MPV 9.4 L (9.5-12.2) FL BUN/Creatinine Ratio (12.00-20.00) Ratio Glucose (70-110) mg/dL POC Glucose (mg/dL) 112 H 117 H (70-110) mg/dL Calcium (8.7-10.3) mg/dL 04/21/23 04/21/23 Range/Units 07:31 11:12 RBC (4.40-5.60) X 10*6/uL MPV (9.5-12.2) FL BUN/Creatinine Ratio 20.75 H (12.00-20.00) Ratio Glucose 113 H (70-110) mg/dL POC Glucose (mg/dL) 120 H (70-110) mg/dL Calcium 8.3 L (8.7-10.3) mg/dL Microbiology - Last 24 Hours (Table) 04/17/23 14:46 Gram Stain - Final Ascites Fluid Body Fluid Culture - Final Assessment and Plan Assessment: 1. Acute kidney injury, most likely hepatorenal syndrome with possibility of hemodynamic ATN with low blood pressure. Started on midodrine and Sandostatin. Status post IV albumin. 2. Chronic liver disease, nonalcoholic, recently diagnosed with portal hypertension and ascites status post paracentesis on 04/17/2023 with 2 L of fluid 3. UTI with urine culture growing E Coli 4. Hypokalemia status post replacement Plan: continue with antibiotics Continue midodrine post discharge Can d/c sandostatin at time of discharge. Can resume aldactone Can resume lasix 20 mg daily upon discharge and increase as needed.
[2023-04-22] MEDS: HEPARIN SODIUM,PORCINE/PF 5,000 UNIT/0.5 ML SYRINGE SQ SCH ×4 (00:08→23:24)
[2023-04-22] MEDS: SPIRONOLACTONE 25 MG TAB PO SCH ×5 (00:12→21:08)
[2023-04-22] MEDS: OCTREOTIDE 100 MCG/ML INJ SQ SCH ×4 (00:12→23:24)
[2023-04-22 00:20] LABS: Glucose,Whole Blood 111 mg/dL (70-110)
[2023-04-22 06:01] LABS: Glucose,Whole Blood 88 mg/dL (70-110)
[2023-04-22] MEDS: SODIUM CHLORIDE 0.9% 1,000 ML IV SCH (07:51)
--- NOTE | 2023-04-22 11:08 | P.PN ---
Subjective Patient is seen in follow-up for patient is seen in follow-up for acute kidney injury. Creatinine peaked at 1.7 this admission and was down to 1.2 yesterday. No labs today. Has been voiding. No chest pain or shortness of breath. Vital signs are stable. General: No acute distress. HEENT: Head exam is unremarkable. LUNGS: No audible rhonchi or wheezes. HEART: Rate and Rhythm are regular. ABDOMEN: Mild distention. EXTREMITITES: 1+ edema. Objective - Vital Signs Vital signs: Vital Signs Temp 97.4 F L 04/22/23 08:32 Pulse 65 04/22/23 08:32 Resp 16 04/22/23 08:32 BP 97/66 04/22/23 08:32 Pulse Ox 97 04/22/23 08:32 FiO2 Intake & Output 04/21/23 04/22/23 04/22/23 18:59 06:59 18:59 Weight 77.111 kg Other: Voiding Method External Catheter External Catheter - Labs CBC & Chem 7: 04/21/23 07:31 04/21/23 07:31 Labs: Abnormal Lab Results - Last 24 Hours (Table) 04/21/23 04/21/23 04/22/23 Range/Units 07:31 11:12 00:18 BUN/Creatinine Ratio 20.75 H (12.00-20.00) Ratio Glucose 113 H (70-110) mg/dL POC Glucose (mg/dL) 120 H 111 H (70-110) mg/dL Calcium 8.3 L (8.7-10.3) mg/dL Microbiology - Last 24 Hours (Table) 04/17/23 14:46 Gram Stain - Final Ascites Fluid Body Fluid Culture - Final Assessment and Plan Plan: Assessment: 1. Acute kidney injury secondary to ATN secondary to hepatorenal syndrome. Creatinine peaked at 1.7 this admission and was down to 1.2 yesterday. Urine sodium less than 20. UPC 0.1. 2. E. coli UTI on antibiotics. 3. Ascites status post paracentesis on 04/17/2023 with 2 L drained. 4. Volume overload. 5. Liver disease. GI following. Plan: Increase dose of midodrine to 10 mg. Hold for systolic blood pressure greater than 110. Increase Aldactone to 50 mg twice daily. Add Lasix 20 mg once daily. Low-salt diet. 1500 mL fluid restriction. Repeat labs in the morning.
[2023-04-22] MEDS: PANTOPRAZOLE 40 MG TABLET PO SCH (11:42)
[2023-04-22] MEDS: droNABinol 2.5 MG CAP PO SCH ×2 (11:42→17:59)
[2023-04-22 11:51] LABS: Glucose,Whole Blood 86 mg/dL (70-110)
[2023-04-22] MEDS: MIDODRINE 5 MG TAB PO SCH ×3 (12:44→17:54)
[2023-04-22] MEDS: FUROSEMIDE 20 MG TAB PO SCH (12:48)
[2023-04-22] MEDS: ATORVASTATIN 20 MG TAB PO SCH (12:48)
[2023-04-22] MEDS: TAMSULOSIN 0.4 MG CAP.ER.24H PO SCH (12:48)
--- NOTE | 2023-04-22 16:03 | P.PN ---
Subjective Progress Note Date: 04/22/23 Hospital course: Patient is a very pleasant 72-year-old male with a past medical history of hypertension, hyperlipidemia, BPH, Parkinson's disease and Brandt body dementia. He presented to the emergency department on 04/15/23 with a chief complaint of abdominal pain/discomfort, decreased appetite, lethargy and generalized weakness progressively worsening over the past 2 months. Patient has been worked up outpatient by PCP and knot borer secondary to these reports. Workup for liver cirrhosis during previous encounters revealed: Ceruloplasmin is normal, alpha-1 anti-trypsin levels and genotype are normal, SPEP does not have a mono clonal protein, ferritin levels are appropriate, iron levels are low and not high, chronic hepatitis panel is negative/nonreactive, BROOKS negative, anti-smooth muscle antibody was within normal limits. Echocardiogram completed 03/10/23 revealed normal ejection fraction revealing only mild pulmonary hypertension. Patient's reports patient has been started on Lasix and Aldactone and did have slight improvement in the swelling of his lower extremities but continues to have increased abdominal girth resulting in decreased appetite and worsening abdominal pain. Patient underwent full evaluation in the emergency department. CBC unremarkable with WBC count of 6.3, hemoglobin 13.7, and platelet count of 224. Coagulation profile normal findings. BMP revealing hyperkalemia with potassium of 2.8, hyponatremia with sodium 131, hypochloremia with chloride of 95, hypercarbia with bicarb of 31, and prerenal azotemia BUN of 25, creatinine 0.93, and GFR greater than 90. Lactic acid was normal findings at 1.0. Liver profile unremarkable. Total protein was 5.3 with albumin of 2.7. CT of the abdomen/pelvis showed large volume ascites with distended abdomen with subcutaneous edema and urinary bladder with mild diffuse thickening concerning for cystitis. Patient admitted under our services with consultation to inte rventional radiology for paracentesis. Consult placed to GI for further evaluation of ascites of unclear origin and to nephrology to rule out nephrotic syndrome. Abdominal ultrasound showed ascites without evidence of hepatic vein thrombosis showing normal flow direction of the portal vein. Patient underwent paracentesis on 04/17/23 resulting in successful removal of approximately 2 L of straw-colored fluid. Patient received 1 dose of albumin 50 ML status post completion of paracentesis. Ascitic fluid results reviewed showing slightly cloudy appearance otherwise showing no significant abnormalities upon review of laboratory report. Cytology report negative for malignant cells.Ascitic fluid Gram stain final results negative showing showing no growth for 4 days. Physical exam: Patient seen and fully evaluated at bedside this morning. Patient very frustrated this morning regarding stay in hospital and requesting discharge. Patient's at bedside, both patient and updated on negative cytology report and discussed plan for outpatient follow-up with PCP, gastroenterology, and nephrology. Initial plan was for discharge patient home with home and palliative care, however patient's later determined that she cannot care for her at home and requesting intermediate facility placement. Consult placed to case management for placement in intermediate facility. Vital signs reviewed and stable. General: Nontoxic, no acute distress but is chronically ill-appearing. Derm: Skin pale, warm and dry. Head: Atraumatic, normocephalic and symmetric. Eyes: EOMs intact, no lid lag, and anicteric sclera Mouth: no lip lesions, mucus membranes moist Cardiovascular: regular rate and rhythm with normal S1S2, no murmur, positive posterior tibial pulses bilaterally, and cap refill < 2 seconds. Lungs: Respirations even, regular, and unlabored on room air. Lungs CTA bilaterally, no rhonchi, no rales, no wheezing, and no accessory muscle usage. Abdominal: Distended cirrhotic abdomen, diffuse tenderness to palpation, no guarding, no appreciable organomegaly Ext: ROM intact. No gross muscle atrophy, 2+ pitting edema bilateral lower extremities, no contractures Neuro: Speech clear, face symmetrical and CN II-XII grossly intact with no noted focal neuro deficits Psych: Alert and oriented to person, place, time, and situation. Appropriate and pleasant affect. Assessment and Plan of Care: Abdominal pain Ascites Hyponatremia secondary to fluid volume overload resulting from ascites E. coli UTI Acute kidney injury with oliguria -Ascitic fluid Gram stain final results negative showing showing no growth for 4 days. -Ascitic fluid cytology report negative for malignant cells. -Urine culture results positive for E. coli. Patient completed 5 day antibiotic course with Rocephin on 04/21/23 -Asp Net Developer following and discussed plan of care, midodrine increased to 10 mg 3 times daily, Aldactone 50 mg twice daily added to daily medication regimen, and Lasix 20 mg daily. -Gastroenterology evaluated, stating patient clear from GI perspective for.outpatient follow-up with their office in 2 weeks after discharge. -Continue bladder management, monitor for post void residuals. Documented output is 600 mL over the past 24 hours. -Continue monitoring of intake and output. -Home medication regimen with Lisinopril was discontinued Hypokalemia, resolved Hypoglycemia, isolated episode -Hypoglycemia secondary to decreased oral intake. No further episodes noted. -Continue hypoglycemic protocol with [id number] glucose checks to be obtained every 6 hours. -Patient also started on Marinol 5 mg twice daily to assist with increasing appetite. -Continue protein supplements 3 times daily between meals and consult to dietitian. Data review: -Vital signs reviewed and stable. blood pressure 106/72, heart rate 64, SpO2 of 96% and temp 98.1F. -Morning labs reviewed. CBC, BMP, and magnesium were all unremarkable. -Final Urine culture positive for E. coli -Final fluid culture results showing no growth after 4 days. -Cytology report of ascitic fluid pending. Imaging review: -No new imaging for review. CODE STATUS: Full code DVT prophylaxis: Heparin Anticipated discharge date: Monday Anticipated discharge place: Family has chosen discharged to intermediate facility. Patient was seen independently by Nurse Pracitioner. This document was prepared using [employer] [facility] [employer] dictation software. Please allow for errors in hose seamer, while rare they do occur. I reviewed the documentation as provided by the SORIN above, who is the original author of this note. I agree with the documented assessment and plan, with the following changes: none Objective - Vital Signs Vital signs: Vital Signs Temp 97.4 F L 04/22/23 08:32 Pulse 65 04/22/23 08:32 Resp 16 04/22/23 08:32 BP 97/66 04/22/23 08:32 Pulse Ox 97 04/22/23 08:32 FiO2 Intake & Output 04/21/23 04/22/23 04/22/23 18:59 06:59 18:59 Weight 77.111 kg Other: Voiding Method External Catheter External Catheter - Labs CBC & Chem 7: 04/21/23 07:31 04/23/23 04:36 Labs: Abnormal Lab Results - Last 24 Hours (Table) 04/21/23 04/21/23 04/21/23 Range/Units 07:31 07:31 11:12 RBC 4.33 L (4.40-5.60) X 10*6/uL MPV 9.4 L (9.5-12.2) FL BUN/Creatinine Ratio 20.75 H (12.00-20.00) Ratio Glucose 113 H (70-110) mg/dL POC Glucose (mg/dL) 120 H (70-110) mg/dL Calcium 8.3 L (8.7-10.3) mg/dL 04/22/23 Range/Units 00:18 RBC (4.40-5.60) X 10*6/uL MPV (9.5-12.2) FL BUN/Creatinine Ratio (12.00-20.00) Ratio Glucose (70-110) mg/dL POC Glucose (mg/dL) 111 H (70-110) mg/dL Calcium (8.7-10.3) mg/dL Microbiology - Last 24 Hours (Table) 04/17/23 14:46 Gram Stain - Final Ascites Fluid Body Fluid Culture - Final
[2023-04-22 16:29] LABS: Glucose,Whole Blood 88 mg/dL (70-110)
[2023-04-23] MEDS: SODIUM CHLORIDE 0.9% 1,000 ML IV SCH (05:41)
[2023-04-23 06:25] LABS: Glucose,Whole Blood 77 mg/dL (70-110)
[2023-04-23 06:36] LABS: ALT 20 U/L (4-49); AST 33 U/L (17-59); African American GFR (CKD) 68 (>60 ml/min/1.73 sqM); Albumin 2.6 g/dL (3.5-5.0); Albumin/Globulin Ratio 1.1; Alkaline Phosphatase 72 U/L (38-126); Anion Gap 3 mmol/L; Blood Urea Nitrogen 25 mg/dL (9-20); Calcium 8.1 mg/dL (8.4-10.2); Carbon Dioxide 31 mmol/L (22-30); Chloride 99 mmol/L (98-107); Globulin 2.4 g/dL; Glucose 74 mg/dL (74-99); Non-African American GFR(CKD) 59 (>60 ml/min/1.73 sqM); Potassium 3.8 mmol/L (3.5-5.1); Sodium 133 mmol/L (137-145); Total Bilirubin 0.5 mg/dL (0.2-1.3)
[2023-04-23] MEDS: HEPARIN SODIUM,PORCINE/PF 5,000 UNIT/0.5 ML SYRINGE SQ SCH ×3 (08:37→23:58)
[2023-04-23] MEDS: ATORVASTATIN 20 MG TAB PO SCH (09:14)
[2023-04-23] MEDS: PANTOPRAZOLE 40 MG TABLET PO SCH (09:14)
[2023-04-23] MEDS: SPIRONOLACTONE 25 MG TAB PO SCH ×2 (09:15→20:34)
[2023-04-23] MEDS: TAMSULOSIN 0.4 MG CAP.ER.24H PO SCH (09:15)
[2023-04-23] MEDS: OCTREOTIDE 100 MCG/ML INJ SQ SCH ×3 (09:15→23:58)
[2023-04-23] MEDS: MIDODRINE 5 MG TAB PO SCH ×3 (09:15→17:34)
[2023-04-23] MEDS: droNABinol 2.5 MG CAP PO SCH ×2 (09:15→17:33)
[2023-04-23] MEDS: FUROSEMIDE 20 MG TAB PO SCH (09:15)
--- NOTE | 2023-04-23 10:13 | P.PN ---
Subjective Progress Note Date: 04/23/23 Hospital course: Patient is a very pleasant 72-year-old male with a past medical history of hypertension, hyperlipidemia, BPH, Parkinson's disease and Brandt body dementia. He presented to the emergency department on 04/15/23 with a chief complaint of abdominal pain/discomfort, decreased appetite, lethargy and generalized weakness progressively worsening over the past 2 months. Patient has been worked up outpatient by PCP and career specialist secondary to these reports. Workup for liver cirrhosis during previous encounters revealed: Ceruloplasmin is normal, alpha-1 anti-trypsin levels and genotype are normal, SPEP does not have a mono clonal protein, ferritin levels are appropriate, iron levels are low and not high, chronic hepatitis panel is negative/nonreactive, BROOKS negative, anti-smooth muscle antibody was within normal limits. Echocardiogram completed 03/10/23 revealed normal ejection fraction revealing only mild pulmonary hypertension. Patient's reports patient has been started on Lasix and Aldactone and did have slight improvement in the swelling of his lower extremities but continues to have increased abdominal girth resulting in decreased appetite and worsening abdominal pain. Patient underwent full evaluation in the emergency department. CBC unremarkable with WBC count of 6.3, hemoglobin 13.7, and platelet count of 224. Coagulation profile normal findings. BMP revealing hyperkalemia with potassium of 2.8, hyponatremia with sodium 131, hypochloremia with chloride of 95, hypercarbia with bicarb of 31, and prerenal azotemia BUN of 25, creatinine 0.93, and GFR greater than 90. Lactic acid was normal findings at 1.0. Liver profile unremarkable. Total protein was 5.3 with albumin of 2.7. CT of the abdomen/pelvis showed large volume ascites with distended abdomen with subcutaneous edema and urinary bladder with mild diffuse thickening concerning for cystitis. Patient admitted under our services with consultation to inte rventional radiology for paracentesis. Consult placed to GI for further evaluation of ascites of unclear origin and to nephrology to rule out nephrotic syndrome. Abdominal ultrasound showed ascites without evidence of hepatic vein thrombosis showing normal flow direction of the portal vein. Patient underwent paracentesis on 04/17/23 resulting in successful removal of approximately 2 L of straw-colored fluid. Patient received 1 dose of albumin 50 ML status post completion of paracentesis. Ascitic fluid results reviewed showing slightly cloudy appearance otherwise showing no significant abnormalities upon review of laboratory report. Cytology report negative for malignant cells.Ascitic fluid Gram stain final results negative showing showing no growth for 4 days. Physical exam: Patient seen and fully evaluated at bedside this morning. Patient very frustrated and agitated this morning regarding stay in hospital and requesting discharge. Patient is alert to person but does have advanced dementia. Patient has been adamantly refusing all oral intake including food, fluids, and medications and requesting hospice. Had a meeting with patient's and family friend at bedside regarding goals of treatment. Vital signs reviewed and stable. General: Nontoxic, no acute distress but is chronically ill-appearing. Derm: Skin pale, warm and dry. Head: Atraumatic, normocephalic and symmetric. Eyes: EOMs intact, no lid lag, and anicteric sclera Mouth: no lip lesions, mucus membranes moist Cardiovascular: regular rate and rhythm with normal S1S2, no murmur, positive posterior tibial pulses bilaterally, and cap refill < 2 seconds. Lungs: Respirations even, regular, and unlabored on room air. Lungs CTA bilaterally, no rhonchi, no rales, no wheezing, and no accessory muscle usage. Abdominal: Distended cirrhotic abdomen, diffuse tenderness to palpation, no guarding, no appreciable organomegaly Ext: ROM intact. No gross muscle atrophy, 2+ pitting edema bilateral lower extremities, no contractures Neuro: Speech clear, face symmetrical and CN II-XII grossly intact with no noted focal neuro deficits Psych: Alert and oriented to person, place, time, and situation. Appropriate and pleasant affect. Assessment and Plan of Care: Abdominal pain Ascites Hyponatremia secondary to fluid volume overload resulting from ascites E. coli UTI Acute kidney injury with oliguria -Ascitic fluid Gram stain final results negative showing showing no growth for 4 days. -Ascitic fluid cytology report negative for malignant cells. -Urine culture results positive for E. coli. Patient completed 5 day antibiotic course with Rocephin on 04/21/23 -Tip Cementer following and discussed plan of care. Tip Cementer was notified that family is contemplating hospice care at this time.. Tip Cementer recommending pending family's decision on hospice, patient to continue midodrine 10 mg 3 times daily, Aldactone 50 mg twice daily, and Lasix 20 mg daily. -Gastroenterology evaluated, clearing patient from GI standpoint on 7/7/23 and recommending.outpatient follow-up with their office in 2 weeks after discharge for further evaluation and discussion of possible EGD and colonoscopy. -Continue bladder management, monitor for post void residuals. Documented output is 900 mL over the past 24 hours. -Continue monitoring of intake and output. -Home medication regimen with Lisinopril was discontinued Hypokalemia, resolved Hypoglycemia, isolated episode -Hypoglycemia secondary to decreased oral intake. No further episodes noted. -Continue hypoglycemic protocol with [id number] glucose checks to be obtained every 6 hours. -Patient also started on Marinol 5 mg twice daily to assist with increasing appetite. -Continue protein supplements 3 times daily between meals and consult to dietitian. Data review: -Vital signs reviewed and stable. blood pressure 106/72, heart rate 64, SpO2 of 96% and temp 98.1F. -Morning labs reviewed. CMP revealing mild hyponatremia with sodium 133, hypercarbia with bicarb of 31, and elevated BUN of 25. -Final Urine culture positive for E. coli -Final fluid culture results showing no growth after 4 days. -Ascitic fluid cytology report negative for malignant cells. Imaging review: -No new imaging for review. CODE STATUS: Full code DVT prophylaxis: Heparin Anticipated discharge date: Monday Anticipated discharge place: Family has chosen to take patient home on hospice. Consult to hospice was placed Patient was seen independently by Nurse Pracitioner. This document was prepared using [employer] dictation software. Please allow for errors in personal security specialist, while rare they do occur. I reviewed the documentation as provided by the SORIN above, who is the original author of this note. I agree with the documented assessment and plan, with the following changes: none Objective - Vital Signs Vital signs: Vital Signs Temp 97.8 F 04/23/23 07:00 Pulse 69 04/23/23 07:00 Resp 18 04/23/23 07:00 BP 103/66 04/23/23 07:00 Pulse Ox 96 04/23/23 07:00 FiO2 Intake & Output 04/22/23 04/23/23 04/23/23 18:59 06:59 18:59 Output Total 600 300 Balance -600 -300 Output: Urine 600 300 Other: Voiding Method External Catheter External Catheter # Voids 3 - Labs CBC & Chem 7: 04/21/23 07:31 04/23/23 04:36 Labs: Abnormal Lab Results - Last 24 Hours (Table) 04/23/23 Range/Units 04:36 Sodium 133 L (137-145) mmol/L Carbon Dioxide 31 H (22-30) mmol/L BUN 25 H (9-20) mg/dL Calcium 8.1 L (8.4-10.2) mg/dL Total Protein 5.0 L (6.3-8.2) g/dL Albumin 2.6 L (3.5-5.0) g/dL
--- NOTE | 2023-04-23 10:13 | P.PN ---
Progress Note - Text Progress Note Date: 04/23/23 Advanced Care Planning: Diagnoses: Severe Ascites, unclear etiology Brandt body dementia Discussion: Patient continues to have significant ascites and bilateral lower extremity edema. He has been refusing all medications, food, and drink. Patient's understanding and states that they have had this discussion in the past and patient would not want a PEG tube any further intervention or treatment at this time. Patient has been through significant amount of testing over the past couple years due to his multiple comorbidities. Patient's requesting that her being made a DO NOT RESUSCITATE/DO NOT INTUBATE at this time and requesting for him to be placed on hospice. Patient's states she would like to take her home on hospice. A total of 22 minutes of face to face time was spent discussing advanced care planning. Dario Bowers NP rendered care for this patient independently, reviewed the findings and plan as documented in the note above. I did not physically speak with or examine the patient on this date.
[2023-04-23] MEDS: LORazepam 2 MG/ML INJ IV PRN ×2 (10:31→17:46)
--- NOTE | 2023-04-23 10:40 | P.PN ---
Subjective Patient is seen in follow-up for acute kidney injury. Creatinine peaked at 1.7 this admission and is stable at 1.2 today. Has been voiding. No chest pain or shortness of breath. Refusing to eat. Requesting hospice. Vital signs are stable. General: No acute distress. HEENT: Head exam is unremarkable. LUNGS: No audible rhonchi or wheezes. HEART: Rate and Rhythm are regular. ABDOMEN: Mild distention. EXTREMITITES: 1+ edema. Objective - Vital Signs Vital signs: Vital Signs Temp 97.8 F 04/23/23 07:00 Pulse 69 04/23/23 07:00 Resp 18 04/23/23 09:25 BP 103/66 04/23/23 07:00 Pulse Ox 96 04/23/23 07:00 FiO2 Intake & Output 04/22/23 04/23/23 04/23/23 18:59 06:59 18:59 Output Total 600 300 Balance -600 -300 Output: Urine 600 300 Other: Voiding Method External Catheter External Catheter External Catheter # Voids 3 - Labs CBC & Chem 7: 04/21/23 07:31 04/23/23 04:36 Labs: Abnormal Lab Results - Last 24 Hours (Table) 04/23/23 Range/Units 04:36 Sodium 133 L (137-145) mmol/L Carbon Dioxide 31 H (22-30) mmol/L BUN 25 H (9-20) mg/dL Calcium 8.1 L (8.4-10.2) mg/dL Total Protein 5.0 L (6.3-8.2) g/dL Albumin 2.6 L (3.5-5.0) g/dL Assessment and Plan Plan: Assessment: 1. Acute kidney injury secondary to ATN secondary to hepatorenal syndrome. C reatinine peaked at 1.7 this admission and is stable at 1.2 today. Urine sodium less than 20. UPC 0.1. 2. E. coli UTI on antibiotics. 3. Ascites status post paracentesis on 04/17/2023 with 2 L drained. 4. Volume overload. 5. Liver disease. GI following. Plan: Maintain midodrine. Hold for systolic blood pressure greater than 110. Maintain Lasix and Aldactone. Low-salt diet. 1500 mL fluid restriction. Hospice being considered. Discussed with family and primary team.
[2023-04-23 11:44] LABS: Glucose,Whole Blood 70 mg/dL (70-110)
[2023-04-23 23:54] LABS: Glucose,Whole Blood 84 mg/dL (70-110)
[2023-04-24] MEDS: SODIUM CHLORIDE 0.9% 1,000 ML IV SCH (02:38)
[2023-04-24 06:24] LABS: Glucose,Whole Blood 94 mg/dL (70-110)
[2023-04-24] MEDS: SPIRONOLACTONE 25 MG TAB PO SCH (08:16)
[2023-04-24] MEDS: TAMSULOSIN 0.4 MG CAP.ER.24H PO SCH (08:16)
[2023-04-24] MEDS: MIDODRINE 5 MG TAB PO SCH (08:16)
[2023-04-24] MEDS: ATORVASTATIN 20 MG TAB PO SCH (08:16)
[2023-04-24] MEDS: FUROSEMIDE 20 MG TAB PO SCH (08:16)
[2023-04-24] MEDS: PANTOPRAZOLE 40 MG TABLET PO SCH (08:16)
[2023-04-24] MEDS: droNABinol 2.5 MG CAP PO SCH (08:17)
[2023-04-24] MEDS: HEPARIN SODIUM,PORCINE/PF 5,000 UNIT/0.5 ML SYRINGE SQ SCH (08:18)
[2023-04-24 09:00] VITALS: BP 100/68; PULSE 58; RESP 20; TEMP 97.8
[2023-04-24] MEDS: LORazepam 2 MG/ML INJ IV PRN (09:38)
[2023-04-24] MEDS: OCTREOTIDE 100 MCG/ML INJ SQ SCH (09:38)
--- NOTE | 2023-04-24 09:58 | P.DS ---
Providers Date of admission: 04/16/23 01:08 Expected date of discharge: 04/24/23 Attending physician: Can Jones MD Consults: 04/18/23 10:51 Consult Physician Routine Consulting Provider: Betty Hurt Consult Reason/Comments: ascites Do you want consulting provider notified?: Yes 04/18/23 14:36 Consult Physician Routine Consulting Provider: Alee Quiroz Consult Reason/Comments: rule out nephrotic syndrome, ascites Do you want consulting provider notified?: Yes Primary care physician: [facility] Course: Discharge Diagnosis: Abdominal pain secondary to severe ascites, patient discharged home with [facility]. Patient and his made the decision to discharge home on hospice. Medications stent and instructed patient and his medication prescriptions were sent if they choose to take them however medications managed by hospice. Ascites. Ascitic fluid Gram stain final results negative showing showing no growth for 4 days. Ascitic fluid cytology report negative for malignant cells. Hyponatremia secondary to fluid volume overload resulting from ascites E. coli UTI, completed 5 day course of antibiotics with Rocephin on 04/21/23 Acute kidney injury with oliguria, resolved Hypokalemia, resolved Hypoglycemia, isolated episode. Hypoglycemia secondary to decreased oral intake. No further episodes noted. Patient also started on Marinol 5 mg twice daily to assist with increasing appetite. Hospital Course: Patient is a very pleasant 72-year-old male with a past medical history of hypertension, hyperlipidemia, BPH, Parkinson's disease and Brandt body dementia. He presented to the emergency department on 04/15/23 with a chief complaint of abdominal pain/discomfort, decreased appetite, lethargy and generalized weakness progressively worsening over the past 2 months. Patient has been worked up outpatient by PCP and museum attendant secondary to these reports. Workup for liver cirrhosis during previous encounters revealed: Ceruloplasmin is normal, alpha-1 anti-trypsin levels and genotype are normal, SPEP does not have a mono clonal protein, ferritin levels are appropriate, iron levels are low and not high, chronic hepatitis panel is negative/nonreactive, BROOKS negative, anti-smooth muscle antibody was within normal limits. Echocardiogram completed 03/10/23 revealed normal ejection fraction revealing only mild pulmonary hypertension. Patient's reports patient has been started on Lasix and Aldactone and did have slight improvement in the swelling of his lower extremities but continues to have increased abdominal girth resulting in decreased appetite and worsening abdominal pain. Patient underwent full evaluation in the emergency department. CBC unremarkable with WBC count of 6.3, hemoglobin 13.7, and platelet count of 224. Coagulation profile normal findings. BMP revealing hyperkalemia with potassium of 2.8, hyponatremia with sodium 131, hypochloremia with chloride of 95, hypercarbia with bicarb of 31, and prerenal azotemia BUN of 25, creatinine 0.93, and GFR greater than 90. Lactic acid was normal findings at 1.0. Liver profile unremarkable. Total protein was 5.3 with albumin of 2.7. CT of the abdomen/pelvis showed large volume ascites with distended abdomen with subcutaneous edema and urinary bladder with mild diffuse thickening concerning for cystitis. Patient admitted under our services with consultation to interventional radiology for paracentesis. Consult placed to GI for further evaluation of ascites of unclear origin and to nephrology to rule out nephrotic syndrome. Abdominal ultrasound showed ascites without evidence of hepatic vein thrombosis showing normal flow direction of the portal vein. Patient underwent paracentesis on 04/17/23 resulting in successful removal of approximately 2 L of straw-colored fluid. Patient received 1 dose of albumin 50 ML status post completion of paracentesis. Ascitic fluid results reviewed showing slightly cloudy appearance otherwise showing no significant abnormalities upon review of laboratory report. Cytology report negative for malignant cells.Ascitic fluid Gram stain final results negative showing showing no growth for 4 days. Patient was very frustrated and began refusing all oral intake including food, fluids, and medications. Patient requesting to be placed on hospice. Patient's and family friend met with hospice and made the decision on 04/23/23 to take her home with hospice care. Medical equipment was delivered to the home and patient discharged home with his on hospice this morning. [facility] hospice on board. Physical exam: Vital signs reviewed and stable. General: Nontoxic, no acute distress but is chronically ill-appearing. Derm: Skin pale, warm and dry. Head: Atraumatic, normocephalic and symmetric. Eyes: EOMs intact, no lid lag, and anicteric sclera Mouth: no lip lesions, mucus membranes moist Cardiovascular: regular rate and rhythm with normal S1S2, no murmur, positive posterior tibial pulses bilaterally, and cap refill < 2 seconds. Lungs: Respirations even, regular, and unlabored on room air. Lungs CTA bilaterally, no rhonchi, no rales, no wheezing, and no accessory muscle usage. Abdominal: Distended cirrhotic abdomen, diffuse tenderness to palpation, no guarding, no appreciable organomegaly Ext: ROM intact. No gross muscle atrophy, 2+ pitting edema bilateral lower extremities, no contractures Neuro: Speech clear, face symmetrical and CN II-XII grossly intact with no noted focal neuro deficits Psych: Alert and oriented to person, place, time, and situation. Appropriate and pleasant affect. A total of 33 minutes of time were spent preparing this complex discharge summary. Pt was discharged on 04/24/23 at 9:57 AM. Patient was seen independently by Nurse Practitioner. This document was prepared using [employer] dictation software. Please allow for errors in specifications writer while rare they do occur. I reviewed the documentation as provided by the SORIN above, who is the original author of this note. I agree with the documented assessment and plan, with the following changes: none Patient Condition at Discharge: Stable Plan - Discharge Summary Discharge Rx Participant: Yes New Discharge Prescriptions: New Midodrine [ProAmatine] 10 mg PO AC-TID 30 Days #180 tab droNABinol [Marinol] 5 mg PO AC-BID 30 Days #60 cap Continue Terazosin [Hytrin] 2 mg PO DAILY Primidone [Mysoline] 50 mg PO DAILY Atorvastatin [Lipitor] 20 mg PO DAILY Tamsulosin [Flomax] 0.4 mg PO DAILY Changed Spironolactone [Aldactone] 50 mg PO BID #0 Furosemide [Lasix] 20 mg PO DAILY #0 Discharge Medication List Atorvastatin [Lipitor] 20 mg PO DAILY 02/15/19 [History] Primidone [Mysoline] 50 mg PO DAILY 02/15/19 [History] Tamsulosin [Flomax] 0.4 mg PO DAILY 02/15/19 [History] Terazosin [Hytrin] 2 mg PO DAILY 02/15/19 [History] Furosemide [Lasix] 20 mg PO DAILY #0 04/22/23 [Rx] Midodrine [ProAmatine] 10 mg PO AC-TID 30 Days #180 tab 04/22/23 [Rx] Spironolactone [Aldactone] 50 mg PO BID #0 04/22/23 [Rx] droNABinol [Marinol] 5 mg PO AC-BID 30 Days #60 cap 04/22/23 [Rx] Follow up Appointment(s)/Referral(s): Leatha Wiley NPC [REFERRING] - 04/28/23 9:15 am Chuck Encarnacion MD [Primary Care Provider] - 1-2 days (Please call Monday to schedule appointment ) Betty Hurt MD [STAFF PHYSICIAN] - 1 Week (Please calll Monday to schedule appointment) [facility] [NON-STAFF] - As Needed Ambulatory/Diagnostic Orders: Comprehensive Metabolic Panel [LAB.AMB] Time Frame: 3 Days, Location: None Emily ected Magnesium [LAB.AMB] Location: None Selected Activity/Diet/Wound Care/Special Instructions: Activity: As tolerated. Take breaks as needed. Diet: Comfort feeds, as discussed patient to eat anything he would like. Special Instructions: Will leave medication up to you and your hospice team. Prescriptions have been sent for new medications if you choose to take them. Thank you for allowing us to participate in your care, it was truly a pleasure having you for our patient!!! Discharge Disposition: HOME WITH HOSPICE
== END 2023-04-24 12:15 | disposition hospice, home (50) | DRG 432 ==
LOC: EC 21:22 → 4SSUR 04-16 01:08
PROVIDERS: ADMIT Internal Medicine; ATTEND Internal Medicine
PROC: 0W9G3ZZ Drainage of Peritoneal Cavity, Percutaneous Approach (ICD-10-PCS; principal; 2023-04-17)
DX: K74.60 Unspecified cirrhosis of liver (principal); E43 Unspecified severe protein-calorie malnutrition; N17.0 Acute kidney failure with tubular necrosis; K76.7 Hepatorenal syndrome; E87.3 Alkalosis; K76.6 Portal hypertension; E87.1 Hypo-osmolality and hyponatremia; R18.8 Other ascites; N30.00 Acute cystitis without hematuria; I27.20 Pulmonary hypertension, unspecified; G31.83 Neurocognitive disorder with Lewy bodies; F02.80 Dementia in other diseases classified elsewhere, unspecified severity, without behavioral disturbance, psychotic disturbance, mood disturbance, and anxiety; G20 Parkinson's disease; B96.20 Unspecified Escherichia coli [E. coli] as the cause of diseases classified elsewhere; Z66 Do not resuscitate; Z51.5 Encounter for palliative care; I95.9 Hypotension, unspecified; E87.8 Other disorders of electrolyte and fluid balance, not elsewhere classified; E78.5 Hyperlipidemia, unspecified; I10 Essential (primary) hypertension; E16.2 Hypoglycemia, unspecified; E87.70 Fluid overload, unspecified; E87.6 Hypokalemia; N40.0 Benign prostatic hyperplasia without lower urinary tract symptoms; K80.20 Calculus of gallbladder without cholecystitis without obstruction; Z68.21 Body mass index [BMI] 21.0-21.9, adult; Z79.899 Other long term (current) drug therapy; Z71.3 Dietary counseling and surveillance
CPT/HCPCS: 36415; 49083; 74177; 76705; 80048; 80053; 81001; 82042; 82150; 82570; 82945; 83605; 83615; 83690; 83735; 84100; 84156; 84157; 84300; 85025; 85027; 85610; 85730; 87070; 87077; 87086; 87186; 87205; 88108; 88305; 89050; 96361; 96365; 96366; 99285